=== PATIENT | male | born 1940 | race Caucasian/White ===

== ENCOUNTER 2017-07-18 09:45 | Outpatient (CLI) | payer MEDICARE ==
--- NOTE | 2017-07-18 13:31 | HP ---
DATE OF SERVICE: 07/18/2017 HISTORY OF PRESENT ILLNESS: Mr. Sylvain Arguello is a very pleasant 77-year-old gentleman who pres ents to the [facility] for evaluation of an ulceration of the right anterior lower leg. The patien t states that the ulceration began as a joy. The patient states that he "scratched my leg somehow" although he does not recall scratching his leg. The patient states that the ulceration has been pres ent for approximately two months. He states that he was treated with 2 courses of p.o. antibiotics b y Dr. Linus Christopher. He states that he was seen by Dr. Christopher on 2 occasions for his right anterior l ower leg ulceration. The patient states that he was last seen by Dr. Christopher on 07/04/2017 and at this time referred to the [facility] Center for further evaluation and treatment. PAST MEDICAL HISTORY: 1. Gastroesophageal reflux disease. 2. History of Marquez's esophagus. 3. Anemia. PAST SURGICAL HISTORY: Bilateral cataract surgery. MEDICATIONS: 1. Spironolactone. 2. Lasix. 3. Lactulose. 4. Iron. 4. Dutasteride. 5. Protonix. ALLERGIES: No known diagnosed allergies. SOCIAL HISTORY: Significant for tobacco use since age 20. The patient states that he stopped smokin g 10 years ago. He states that over this period of time, he smoked up to 1-1/2 packs of cigarettes p er day. The patient states that he stopped consuming alcohol 1.5 years ago. He admits to the heavy consumption of alcohol in the past. FAMILY HISTORY: Negative for diabetes mellitus or coronary artery disease. REVIEW OF SYSTEMS: The patient states that he has a liver condition for which he is followed by Dr. Nomi Weber. The patient states that he underwent endoscopy by Dr. Weber in 10/2013. PHYSICAL EXAMINATION: VITAL SIGNS: Temperature 97.9, pulse 71, respirations 18, blood pressure 167/79. GENERAL: A 77-year-old gentleman sitting on chair in examination room in no acute distress. HEENT: Normocephalic and atraumatic. NECK: No nuchal rigidity. CHEST: Clear to auscultation. CARDIOVASCULAR: Regular rate and rhythm. ABDOMEN: Soft. EXTREMITIES: An ulceration of the right anterior lower leg is present which measures approximately 1 .5 x 1.0 cm. The ulceration is completely covered by dry stable eschar. No serous or purulent drain age is associated with the wound. Erythema of the skin surrounding the wound is present which appear s to be secondary to stasis changes as opposed to an infectious process. No maceration of the skin o f the periwound is noted. A dorsalis pedis pulse is palpable on the right. Edema of the right foot and lower leg is present on exam today. NEUROLOGIC: Grossly nonfocal. ASSESSMENT AND PLAN: 1. Chronic venous hypertension with ulcer and inflammation. Discoloration of the skin of the right foot is present secondary to hemosiderin deposition. Silverlon, Webril p.r.n. and 3M Coban 2-layer c ompression system will be applied to the ulceration today. No antibiotics will be prescribed today b ased upon the appearance of the wound. I will see Mr. Arguello again in one week. At this time, cons ideration will be given to debridement of the wound in conjunction with treatment with 3M Coban 2 lay er compression system. Mr. Arguello understands and is in agreement with the preceding treatment plan . 2. Gastroesophageal reflux disease. 3. History of Marquez's esophagus. 4. Anemia.
[2017-07-18] MEDS ORDERED: Sodium Chloride 0.9% 15 ML NEB ONE (17:56)
== END 2017-07-18 09:46 | disposition home or self-care (01) ==
LOC: WCC 09:45
PROVIDERS: ATTEND Family Medicine
DX: I87.331 Chronic venous hypertension (idiopathic) with ulcer and inflammation of right lower extremity (principal); L97.819 Non-pressure chronic ulcer of other part of right lower leg with unspecified severity; K21.9 Gastro-esophageal reflux disease without esophagitis; D64.9 Anemia, unspecified; Z87.19 Personal history of other diseases of the digestive system
CPT/HCPCS: 29581; 97139; G0463; 99203; A4218

== ENCOUNTER 2017-07-25 11:21 | Outpatient (CLI) | payer MEDICARE ==
[~2017-07-25 11:21] MED LIST: Sodium Chloride 0.9% 15 ML NEB ONE
--- NOTE | 2017-07-25 14:20 | PRG ---
DATE OF SERVICE: 07/25/2017 HISTORY: Mr. Sylvain Arguello is a very pleasant 77-year-old gentleman who presents to the [facility] for evaluation of an ulceration of the right anterior lower leg. The patient previously stated that the ulceration began as a joy. The patient stated that he "scratch my leg somehow" although selena plasencia did not recall scratching his leg. The patient stated that the ulceration had been present for kylegih roximately 2 months when he initially presented to the [facility] Center. He stated that he was treated w ith 2 courses of p.o. antibiotics by Dr. Linus Christopher. He stated that he was seen by Dr. Christopher on 2 occasions for his right anterior lower leg ulceration. The patient stated that he was last seen by Dr. Christopher on 07/04/2017 and at this time referred to the [facility] Center for further evaluation and nelia tment. After being seen in the Wound Center, the ulceration was dressed with Silverlon, Webril, and 3M Coban 2 layer compression system. PHYSICAL EXAMINATION: VITAL SIGNS: Temperature 97.9, pulse 72, respirations 19, blood pressure 144/66. EXTREMITIES: An ulceration of the right anterior lower leg is present which measures approximately 1 .8 x 0.8 cm. The ulceration is covered by dry stable eschar. No serous or purulent drainage is asso ciated with the wound. Erythema of the skin surrounding the wound is present which appears to be sec ondary to stasis changes as opposed to an infectious process. No maceration of the skin of the periw ound is noted. A dorsalis pedis pulse is palpable on the right. No significant edema of the right f oot or lower leg is present on exam today. ASSESSMENT AND PLAN: 1. Chronic venous hypertension with ulcer and inflammation. Silverlon, Webril p.r.n., and the 3M Co ban 2-layer compression system will be applied to the ulceration today. I will see Mr. Arguello again in one week. 2. Gastroesophageal reflux disease. 3. History of Marquez's esophagus. 4. Anemia.
== END 2017-07-25 11:22 | disposition home or self-care (01) ==
LOC: WCC 11:21
PROVIDERS: ATTEND Family Medicine
DX: I87.311 Chronic venous hypertension (idiopathic) with ulcer of right lower extremity (principal); L97.219 Non-pressure chronic ulcer of right calf with unspecified severity; K21.9 Gastro-esophageal reflux disease without esophagitis; D64.9 Anemia, unspecified; Z87.19 Personal history of other diseases of the digestive system
CPT/HCPCS: 29581; A4218

== ENCOUNTER 2017-08-01 09:57 | Outpatient (CLI) | payer MEDICARE ==
[~2017-08-01 09:57] MED LIST changes: +Lidocaine 2% Jelly 5 ML TUBE ONE
--- NOTE | 2017-08-01 11:40 | PRG ---
DATE OF SERVICE: 08/01/2017 SUBJECTIVE: Mr. Sylvain Arguello is a very pleasant 77-year-old gentleman who presents to the [facility] for evaluation of an ulceration of the right anterior lower leg. The patient previously sta anshu that the ulceration began as a joy. The patient stated that he "scratched my leg somehow" altho ugh he did not recall scratching his leg. The patient stated that the ulceration had been present fo r approximately 2 months when he initially presented to the Wound Center. He stated that he was nelia anshu with 2 courses of p.o. antibiotics by Dr. Linus Christopher. The patient stated that he was seen by Dr. Christopher on 2 occasions for his right anterior lower leg ulceration. The patient stated that he was last seen by Dr. Christopher on 07/04/2017 and at this time referred to the Wound Center for further evalu ation and treatment. After being seen in the Wound Center, the ulceration was dressed with Silverlon , Webril, and 3M Coban 2 layer compression system. The patient has been receiving these dressing milad nges on a weekly basis. PHYSICAL EXAMINATION: VITAL SIGNS: Temperature 97.9, pulse 98, respirations 19, blood pressure 117/68. EXTREMITIES: An ulceration of the right anterior lower leg is present which measures approximately 2 .1 x 1.1 cm. Granulation tissue is present within the wound margins. Necrotic and nonviable tissue present within the wound margins was debrided with an excisional full-thickness debridement with the use of scissors. No purulent drainage is associated with the wound. Erythema of the skin surroundin g the wound is present which appears to be secondary to stasis changes as opposed to an infectious pr ocess. No maceration of the skin of the periwound is noted. A dorsalis pedis pulse is palpable on t he right. No significant edema of the right foot or lower leg is present on exam today. ASSESSMENT AND PLAN: 1. Chronic venous hypertension with ulcer and inflammation. The patient declines application of the 3M Coban 2 layer compression system today due to pain associated with the compression wrap. Therefo re, the patient is to receive dressing changes of Xeroform gauze, ABD, Kerlix, and an Zi bandage on a daily basis after cleansing and irrigation. Arrangements will be made for the home delivery of brian ssi supplies. I will see Mr. Arguello again in one week. 2. Gastroesophageal reflux disease. 3. History of Marquez's esophagus. 4. Anemia.
== END 2017-08-01 09:58 | disposition home or self-care (01) ==
LOC: WCC 09:57
PROVIDERS: ATTEND Family Medicine
DX: I87.331 Chronic venous hypertension (idiopathic) with ulcer and inflammation of right lower extremity (principal); L97.919 Non-pressure chronic ulcer of unspecified part of right lower leg with unspecified severity; K21.9 Gastro-esophageal reflux disease without esophagitis; D64.9 Anemia, unspecified; K22.70 Barrett's esophagus without dysplasia
CPT/HCPCS: A4218

== ENCOUNTER 2017-08-08 09:52 | Outpatient (CLI) | payer MEDICARE ==
[2017-08-08] MEDS ORDERED: Sodium Chloride 0.9% 15 ML NEB ONE (10:00)
[2017-08-08] MEDS ORDERED: Lidocaine 2% Jelly 5 ML TUBE ONE (10:00)
--- NOTE | 2017-08-08 11:07 | PRG ---
DATE OF SERVICE: 08/08/2017 HISTORY: Mr. Sylvain Arguello is a very pleasant 77-year-old gentleman who presents to the [facility] for evaluation of an ulceration of the right anterior lower leg. The patient previously stated that the ulceration began as a joy. The patient stated that he "scratch my leg somehow," although he did not recall scratching his leg. The patient stated that the ulceration had been present for ap proximately 2 months when he initially presented to the [facility] Center. The patient stated that he was seen by Dr. Christopher on 2 occasions for his right anterior lower leg ulceration. The patient stated th at he was last seen by Dr. Christopher on 07/04/2017 and at this time referred to the [facility]ound Center for furt her evaluation and treatment. After being seen in the Wound Center, the ulceration was dressed with Silverlon, Webril, and 3m Coban 2 layer compression system. Since the patient's last visit, Mr. Lindsey martinez has been receiving dressing changes of Xeroform gauze, ABD, Kerlix, and an Zi bandage on a daily basis after cleansing and irrigation. PHYSICAL EXAMINATION: VITAL SIGNS: Temperature 97.7, pulse 72, respirations 18, and blood pressure 128/65. EXTREMITIES: An ulceration of the right anterior lower leg is present which measures approximately 1 .1 x 2.0 cm. Granulation tissue is present within the wound margins. Necrotic and nonviable tissue present within the wound margins was debrided with an excisional full-thickness debridement with the use of a curette. No purulent drainage is associated with the wound. Erythema of the skin surroundi ng the wound is present, which again appears to be secondary to stasis changes as opposed to an infec tious process. No maceration of the skin of the periwound is noted. A dorsalis pedis pulse is not p alpable on the right. A dorsalis pedis pulse and posterior tibial pulse are both audible by Doppler on exam today. No significant edema of the right foot or lower leg is present on exam today. ASSESSMENT AND PLAN: 1. Chronic venous hypertension with ulcer and inflammation. Dressing changes of Xeroform gauze, ABD , Kerlix, and an Zi bandage will be continued on a daily basis after cleansing and irrigation. Annette awan were previously made for the home delivery of dressing supplies. I will see Mr. Saundra mistry in in one week. 2. Gastroesophageal reflux disease. 3. History of Marquez's esophagus. 4. Anemia.
== END 2017-08-08 09:53 | disposition home or self-care (01) ==
LOC: WCC 09:52
PROVIDERS: ATTEND Family Medicine
DX: I87.331 Chronic venous hypertension (idiopathic) with ulcer and inflammation of right lower extremity (principal); L97.219 Non-pressure chronic ulcer of right calf with unspecified severity; K21.9 Gastro-esophageal reflux disease without esophagitis; D64.9 Anemia, unspecified; Z87.19 Personal history of other diseases of the digestive system

== ENCOUNTER 2017-08-15 11:20 | Outpatient (CLI) | payer MEDICARE ==
--- NOTE | 2017-08-15 13:36 | PRG ---
DATE OF SERVICE: 08/15/2017 HISTORY: Mr. Sylvain Arguello is a very pleasant 77-year-old gentleman who presents to the [facility] for evaluation of an ulceration of the right anterior lower leg. The patient previously stated that the ulceration began as a joy. The patient stated that he "scratched my leg somehow" although he did not recall scratching his leg. The patient stated that the ulceration had been present for a pproximately 2 months when he initially presented to the [facility] Center. The patient stated that he wa s seen by Dr. Christopher on 2 occasions for his right anterior lower leg ulceration. The patient stated t hat he was last seen by Dr. Christopher on 07/04/2017 and at this time referred to the Wound Center for fur ther evaluation and treatment. After being seen in the Wound Center, the ulceration was dressed with Silverlon, Webril, and 3m Coban 2 layer compression system. Subsequently, the patient was placed on dressing changes of Xeroform gauze, ABD, Kerlix, and an Zi bandage on a daily basis after cleansing and irrigation. PHYSICAL EXAMINATION: VITAL SIGNS: Temperature 97.7, pulse 72, respirations 18, blood pressure 140/66. EXTREMITIES: An ulceration of the right anterior lower leg is present which measures approximately 1 .9 x 0.8 cm. Granulation tissue is present within the wound margins. Necrotic and nonviable tissue present within the wound margins was debrided with an excisional full-thickness debridement with the use of a curette. No purulent drainage is associated with the wound. Less erythema of the skin surr ounding the wound is present than at the time of the patient's last visit. The erythema of the skin surrounding the wound appears to be secondary to stasis changes as opposed to an infectious process. No maceration of the skin of the periwound is noted. A dorsalis pedis pulse is palpable on the righ t. No significant edema of the right foot or lower leg is present on exam today. ASSESSMENT AND PLAN: 1. Chronic venous hypertension with ulcer and inflammation. Dressing changes of Xeroform gauze, ABD , Kerlix, and an Zi bandage will be continued on a daily basis after cleansing and irrigation. I wi ll see Mr. Arguello again in two weeks. 2. Gastroesophageal reflux disease. 3. History of Marquez's esophagus. 4. Anemia.
== END 2017-08-15 11:21 | disposition home or self-care (01) ==
LOC: WCC 11:20
PROVIDERS: ATTEND Family Medicine
DX: I87.331 Chronic venous hypertension (idiopathic) with ulcer and inflammation of right lower extremity (principal); L97.919 Non-pressure chronic ulcer of unspecified part of right lower leg with unspecified severity; K21.9 Gastro-esophageal reflux disease without esophagitis; D64.9 Anemia, unspecified
CPT/HCPCS: 11042; A4218

== ENCOUNTER 2017-08-28 07:22 | Outpatient (CLI) | payer MEDICARE | END 2017-08-28 07:23 | disposition home or self-care (01) | LOC: BICULT 07:22 | PROVIDERS: ATTEND Internal Medicine Gastroenterology | DX: K74.60 Unspecified cirrhosis of liver (principal); K22.70 Barrett's esophagus without dysplasia; K80.20 Calculus of gallbladder without cholecystitis without obstruction; R16.1 Splenomegaly, not elsewhere classified; Z86.010 Personal history of colon polyps | CPT/HCPCS: 76705 ==

== ENCOUNTER 2017-08-29 10:38 | Outpatient (CLI) | payer MEDICARE ==
--- NOTE | 2017-08-29 11:40 | PRG ---
DATE OF SERVICE: 08/29/2017 HISTORY: Mr. Sylvain Arguello is a very pleasant 77-year-old gentleman who presents to the [facility] for evaluation of an ulceration of the right anterior lower leg. The patient previously stated that the ulceration began as a joy. The patient stated that he "scratched my leg somehow," althoug h he did not recall scratching his leg. The patient stated that the ulceration had been present for approximately 2 months when he initially presented to the [facility] Center. The patient stated that he w as seen by Dr. Christopher on 2 occasions for his right anterior lower leg ulceration. The patient stated that he was last seen by Dr. Christopher on 07/04/2017 and at this time, referred to the Wound Center for f urther evaluation and treatment. After being seen in the Wound Center, the ulceration was dressed wi th Silverlon, Webril and 3M Coban 2-layer compression system. Subsequently, the patient was placed o n dressing changes of Xeroform gauze, ABD, Kerlix and an Zi bandage on a daily basis after cleansing and irrigation. PHYSICAL EXAMINATION: VITAL SIGNS: Temperature 97.7, pulse 91, respirations 16, blood pressure 118/64. EXTREMITIES: An ulceration of the right anterior lower leg is present, which measures approximately 0.4 x 0.9 cm. Granulation tissue is present within the wound margins. Necrotic and nonviable tissue present within the wound margins was debrided with an excisional full-thickness debridement. No pur ulent drainage is associated with the wound. No cellulitis of the right lower leg is present. No ma ceration of the skin of the periwound is noted. A dorsalis pedis pulse is palpable on the right. No significant edema of the right foot or lower leg is present on exam today. ASSESSMENT AND PLAN: 1. Chronic venous hypertension with ulcer and inflammation. Xeroform gauze, ABD, Kerlix and an Zi bandage will be applied to the wound today. The patient is to receive dressing changes of Xeroform g auze 3 times per week after cleansing and irrigation with the assistance of his . I will see Mr. Arguello again in two weeks if the wound is still present at this time. 2. Gastroesophageal reflux disease. 3. History of Marquez's esophagus. 4. Anemia.
== END 2017-08-29 10:39 | disposition home or self-care (01) ==
LOC: WCC 10:38
PROVIDERS: ATTEND Family Medicine
DX: I87.331 Chronic venous hypertension (idiopathic) with ulcer and inflammation of right lower extremity (principal); L97.819 Non-pressure chronic ulcer of other part of right lower leg with unspecified severity; D64.9 Anemia, unspecified; K21.9 Gastro-esophageal reflux disease without esophagitis; Z87.19 Personal history of other diseases of the digestive system
CPT/HCPCS: 11042

== ENCOUNTER 2017-09-19 08:02 | Outpatient (CLI) | payer MEDICARE ==
--- NOTE | 2017-09-19 09:14 | PRG ---
DATE OF SERVICE: 09/19/2017 HISTORY: Mr. Sylvain Arguello is a very pleasant 77-year-old gentleman who presents to the [facility] for evaluation of an ulceration of the right anterior lower leg. The patient previously stated that the ulceration began as a joy. The patient stated that he "scratched my leg somehow" although he did not recall scratching his leg. The patient stated that the ulceration had been present for a pproximately 2 months when he initially presented to the [facility] Center. The patient stated that he wa s seen by Dr. Christopher on two occasions for his right anterior lower leg ulceration. The patient stated that he was seen by Dr. Christopher on 07/04/2017 and at this time referred to the Wound Center for furthe r evaluation and treatment. After being seen in the Wound Center, the ulceration was dressed with Si lverlon, Webril, and 3M Coban 2 layer compression system. Subsequently, the patient was placed on dr melanie changes of Xeroform gauze, ABD, Kerlix, and an Zi bandage on a daily basis after cleansing an d irrigation. PHYSICAL EXAMINATION: VITAL SIGNS: Temperature 98.9, pulse 97, respirations 18, blood pressure 122/80. EXTREMITIES: The ulceration of the right anterior lower leg has completely healed. No significant e isaias of the right foot or lower leg is present on exam today. ASSESSMENT AND PLAN: 1. Chronic venous hypertension with ulcer and inflammation. As stated above, the ulceration has hea led completely. Mr. Arguello will be discharged from clinic today with followup on a p.r.n. basis. 2. Gastroesophageal reflux disease. 3. History of Marquez's esophagus. 4. Anemia.
[2017-09-20] MEDS ORDERED: Sodium Chloride 0.9% 15 ML NEB ONE (15:19)
== END 2017-09-19 08:03 | disposition home or self-care (01) ==
LOC: WCC 08:02
PROVIDERS: ATTEND Family Medicine
DX: I87.301 Chronic venous hypertension (idiopathic) without complications of right lower extremity (principal); K21.9 Gastro-esophageal reflux disease without esophagitis; D64.9 Anemia, unspecified

== ENCOUNTER 2018-06-25 08:54 | Outpatient (CLI) | payer MEDICARE ==
--- NOTE | 2018-06-25 12:59 | ULT ---
HEPATIC ULTRASOUND DOPPLER DUPLEX: 06/25/2018 HISTORY: A 78-year-old male with unspecified cirrhosis of the liver, K74.60. TECHNIQUE: Pinon-scale, color-flow, and spectral analysis of the liver, the spleen, and the major blood vessels a ssociated with the liver. FINDINGS: Hepatic size and echogenicity are normal. There is a subtle finding of an approximately 2 x 2 x 2.5 cm, irregularly-shaped focus of slightly he terogeneous echogenicity in the right lobe of the liver, which is somewhat suspicious for neoplasm. Hepatic margins are slightly lobular, suggestive of cirrhosis. The previously demonstrated gallstone on the study of 08/28/2017 is not visualized on the current shana dy. Normal wall thickness. No sludge, pericholecystic fluid, or sonographic Andrews sign. Common duct caliber is 5 mm. The spleen is at the upper limits of normal in size, at 14.5 x 6.5 x 6.5 cm, with a slightly lobular hilum. Pulsatile arterial waveforms at hepatic artery and splenic artery. Hepatopetal flow with appropriate portal venous waveforms in the main, left, and right portal veins, and splenic vein. Hepatofugal louise w with appropriate waveforms in the left, middle, and right hepatic veins. IMPRESSION: 1. Suspicious for hepatocellular carcinoma in the right lobe of the liver. Recommend further evalua tion with a multiphase CT of the abdomen with and without contrast (liver mass protocol). 2. Evidence for hepatic cirrhosis. 3. Borderline splenomegaly. 4. The cholelithiasis demonstrated on previous liver ultrasounds is not identified on the current st udy. 5. Appropriate directional flow of major vessels associated with the liver. CODE T POS: BRIAN
== END 2018-06-25 08:55 | disposition home or self-care (01) ==
LOC: BICULT 08:54
PROVIDERS: ATTEND Internal Medicine Gastroenterology
DX: K74.60 Unspecified cirrhosis of liver (principal); R16.1 Splenomegaly, not elsewhere classified
CPT/HCPCS: 76705

== ENCOUNTER 2018-07-24 08:52 | Outpatient (CLI) | payer MEDICARE ==
--- NOTE | 2018-07-24 11:57 | MRI ---
MRI Abdomen W WO Con History: [R 16.0 liver mass] Comparison: Ultrasound June 25, 2018, August 2017 Findings: The hepatic contour is nodular. Within the right lobe of the liver there are 2 separate sma ll arterial hyperenhancing masses in hepatic segment 4B. The larger mass measures 2.2 cm in size axia l image 1023 on the arterial phase and the smaller measures 7 mm axial images 1023 arterial phase. Tereso th of these foci demonstrate washout. There is an enhancing capsule. The smaller 7 mm mass also demon strates arterial phase hyper enhancement with washout and an enhancing capsule. The spleen is enlarged measuring 15 cm in length. Small splenule is noted. Pancreas is unremarkable. Adrenal glands are unremarkable. The aortic contour is nonaneurysmal. The portal vein is patent. Circumferential narrowing of the osti a the superior mesenteric artery due to soft plaque. No hydronephrosis. No retroperitoneal adenopathy. Bilateral gynecomastia. Punctate T2 hyperintense foci of the right kidney which does not enhance suggesting small cysts. Background marrow signal is normal. Cholelithiasis without cholecystitis. Mild atelectasis left lung base. Small esophageal varices. Impression: 1. LI-RADS 5: Definitely HCC. Mass within hepatic segment Kacey measures 2.2 cm with arterial phase hyp erenhancement, washout, and an enhancing capsule. There is a smaller 7 mm mass with similar imaging a ppearance which due to its small size would be categorized as a LI-RADS 4: Probably HCC. 2. Severe background cirrhosis of the liver. There is also splenomegaly suggesting portal venous hype rtension. The portal vein is patent. 3. Approximately 50% narrowing at the origin of superior mesenteric artery due to soft and calcific p laque. 4. Small right renal cysts. 5. Cholelithiasis.
== END 2018-07-24 08:53 | disposition home or self-care (01) ==
LOC: BICMRI 08:52
PROVIDERS: ATTEND Internal Medicine Gastroenterology
DX: R16.2 Hepatomegaly with splenomegaly, not elsewhere classified (principal); K74.60 Unspecified cirrhosis of liver; N28.1 Cyst of kidney, acquired; K80.20 Calculus of gallbladder without cholecystitis without obstruction; I77.89 Other specified disorders of arteries and arterioles
CPT/HCPCS: 74183; 82565

== ENCOUNTER 2019-08-29 09:00 | Outpatient (CLI) | payer MEDICARE ==
[2019-08-29] MEDS ORDERED: Magnevist 469MG/ML 20 ML VIAL ONE (10:13)
--- NOTE | 2019-08-29 13:25 | CT ---
CT CHEST WITHOUT CONTRAST: INDICATION: Liver cell carcinoma is given as reason for exam. The technologist's note states prior resection of liver mass. COMPARISON: Comparison is made to a chest CT from 10/23/2015. FINDINGS: The lungs show mild hyperexpansion and chronic lung parenchymal change. Mild stranding in the lung b ases posteriorly. There is pleural thickening posteriorly in the left lung base with a calcified ple ural-based nodule in the left lung base which is stable. There is mild pleural-based stranding in th e lingula peripherally. There is no evidence of effusion. There is no evidence of inflammatory infi ltrate. No pulmonary mass lesion identified. The mediastinum is unremarkable. No adenopathy identified. Images through the upper abdomen revealed gallstones in the neck of the gallbladder. The liver duane n is irregular consistent with changes of cirrhosis. No hepatic lesion identified on this unenhanced study. Mild splenomegaly. Osseous structures appear unremarkable. IMPRESSION: 1. There are mild chronic lung parenchymal changes as described. No acute lung process identified. 2. Cholelithiasis is noted on images through the upper abdomen. POS: AGW
--- NOTE | 2019-08-29 18:06 | MRI ---
MR OF THE ABDOMEN WITH AND WITHOUT CONTRAST: 08/29/19 INDICATION: History of hepatocellular carcinoma status post therapy; follow-up liver lesion. CONTRAST: 13 mL Multihance. TECHNIQUE: Multiplanar and multisequence MR images were obtained of the liver with and without contrast utilizin g a hepatic mass protocol. COMPARISON: Comparison is made with the prior dated 07/24/18 from [facility]. FINDINGS: The arterial enhancing mass within segment VIII of the right hepatic lobe labeled an LR5 lesion on th e prior examination demonstrates interval increase in size on image 1022 of the arterial phase images . The lesion previously measured 2.3 x 1.9 cm and now measures 3.2 x 2.4 cm. The lesion demonstrates persistent central washout and peripheral capsular enhancement. There is a new hyperenhancing lesion within segment of the right hepatic lobe on image 1032 of the arterial series measuring 1.7 cm. This lesion in retrospect was not evident on the prior examination . Additional small focal area of hyperenhancement is seen adjacent to the segment VIII lesion on image 1025 of series 8 measuring 7 mm. This previously measured 5 mm on the prior examination. An additiona l 1 cm hyperenhancing lesion is seen within segment VIII of the right hepatic lobe on image 1023 of s eries 8 where this previously measured 8 mm on the prior examination. There is a 1.8 cm hyperenhancing lesion within the caudate lobe on image 1025 of the axial series kyra t previously measured 11 mm. There is an additional hyperenhancing lesion within the caudate lobe on image 1030 of the axial series that previously measured 11 mm. Again seen is the cirrhotic morphology of the liver. There is recanalization of the umbilical vein. There is splenomegaly measuring up to 17 cm. Small cysts are seen within both kidneys. Adrenal glands are normal appearing. Portal vein appears patent. No intraluminal thrombus is grossly evident within the hepatic vein or portal vein. No pathologically enlarged lymph nodes are seen within the upper ab domen. No free fluid is noted. Again seen is moderate narrowing of the proximal SMA due to atheroscle rotic plaque. There are layered gallstones within the gallbladder. IMPRESSION: 1. LI-RADS 5. Worsening multifocal hepatocellular carcinoma. The lesions previously identified within segment VIII of right hepatic lobe have increased in number and size. The lesions seen within the caudate lobe have increased in size. There is a new lesion within segment of the right hepati c lobe. 2. Findings of cirrhosis and portal hypertension. 3. Stable bilateral renal cysts. 4. Stable cholelithiasis. POS: BH
== END 2019-08-29 09:01 | disposition home or self-care (01) ==
LOC: BICCT 09:00
PROVIDERS: ATTEND Internal Medicine Gastroenterology
DX: C22.0 Liver cell carcinoma (principal); K80.20 Calculus of gallbladder without cholecystitis without obstruction; R91.8 Other nonspecific abnormal finding of lung field; J92.9 Pleural plaque without asbestos; N28.1 Cyst of kidney, acquired; K76.6 Portal hypertension; K74.60 Unspecified cirrhosis of liver; K76.9 Liver disease, unspecified
CPT/HCPCS: 71250; 74183; 82565; A9579

== ENCOUNTER 2020-04-05 15:44 | Inpatient (IN) | payer MEDICARE ==
[2020-04-05 16:32] LABS: #Eosinphils 0.1 thou/uL (0.0-0.7); #Lymphocytes 0.7 thou/uL (1.20-3.40); #Monocytes 0.9 thou/uL (0.11-0.59); #Neutrophils 6.2 thou/uL (1.40-6.50); %Basophils 0.3 % (0.0-1.0); %Eosinophils 1.1 % (0.0-10.0); %Lymphocytes 8.3 % (21.0-51.0); %Monocytes 11.4 % (0.0-10.0); %Neutrophils 78.9 % (42.0-75.0); Hemoglobin 10.5 g/dL (14.0-18.0); Mean Corpuscular HGB CONC 32.4 g/dL (32.0-36.0); Mean Corpuscular Hemoglobin 31.7 pg (27.0-31.0); Mean Corpuscular Volume 97.8 fL (78.0-98.0); Mean Platelet Volume 7.6 fL (7.4-10.4); Platelet Count 148 thou/uL (130-400); RBC Distribution Width 15.9 % (11.5-14.5); White Blood Cell (WBC) Count 7.9 thou/uL (4.8-10.8)
[2020-04-05 16:58] LABS: ALT (SGPT) 46 U/L (8-55); AST (SGOT) 113 U/L (5-34); Albumin 2.4 g/dL (3.4-4.8); Alkaline Phosphatase 135 U/L (40-110); Anion Gap 17 mmol/L (10-20); BUN (Urea Nitrogen) 58 mg/dL (8.4-25.7); Bilirubin, Total 5.1 mg/dL (0.2-1.2); Calc. Creatinine Clearance 0 mL/min (70-130); Calcium 9.3 mg/dL (7.8-10.44); Carbon Dioxide 18 mmol/L (23-31); Chloride 99 mmol/L (98-107); Globulin 3.9 g/dL (2.4-3.5); Glucose 122 mg/dL (83-110); Potassium 4.6 mmol/L (3.5-5.1); Protein, Total 6.3 g/dL (5.8-8.1); Sodium 129 mmol/L (136-145)
--- NOTE | 2020-04-05 18:03 | RAD ---
EXAM: Single view of the chest HISTORY: Liver cancer and cirrhosis. CHF. COMPARISON: 12/14/2015 FINDINGS: Single view of the chest shows a normal sized cardiomediastinal silhouette. Atheroscleroti c calcifications are seen in the aorta. There is a veil opacity in the inferior right thorax which likely represents a layering pleural effusion and adjacent atelectasis versus infiltrate. There may a lso be a trace left pleural effusion. Healing left rib fractures are seen. IMPRESSION: Bilateral pleural effusions, right greater than left.
[2020-04-05] MEDS ORDERED: Morphine 4 MG/ML VIAL ONE (18:37)
[2020-04-05] MEDS ORDERED: Ondansetron PF 4 MG/2 ML Vial ONE ×2 (18:37→18:48)
[2020-04-05] MEDS ORDERED: cefTRIAXone\\ROCEPHIN 2 GM VIAL ONE (19:09)
[2020-04-05] MEDS ORDERED: Albumin 25% 25 GM/100 ML BOT IVPB SCH (19:30)
[2020-04-05 19:52] LABS: Bilirubin Negative (Negative); Blood, Urine Negative (Negative); Clarity Clear (Clear); Glucose, Urine (Dipstick) Normal (Negative); Ketone, Urine Negative (Negative); Leukocyte Negative Leu/uL (Negative); Nitrite Negative (Negative); Protein, Urine (Dipstick) Negative (Neg-Trace); Specific Gravity, Urine 1.016 (1.002-1.036)
[2020-04-05] MEDS ORDERED: Ondansetron ODT 4 MG TAB PO PRN (21:50)
[2020-04-05] MEDS ORDERED: Ondansetron PF 4 MG/2 ML Vial IVP PRN (21:50)
--- NOTE | 2020-04-05 22:12 | PDOC.HHP ---
Hospitalist HPI - History of Present Illness Abdominal discomfort, nausea History of Present Illness: This is 80-year-old male patient with a history of decompensated cirrhosis, hypertension, who presents with worsening abdominal discomfort and nausea. This has been going on for over a week however his condition he felt worsened today with, abdominal tension and swelling of his feet so he came to the ED. He was brought in by his who helped narrate the history. He follows if Dr. Weber. He denies any associated headache fevers or chills. He denies any cough chest pain or shortness of breath. He denies any vomiting although he has nausea. Abdomen is tense with discomfort however not exquisitely painful. He denies any dysuria frequency or diarrhea. At presentation his blood pressure was 98/54, pulse 98, temperature 98.2 and saturating 95% on room air. He had a mild anemia of 10.5 From a baseline of 12.1, 3 months ago months ago. Sodium was 129, creatinine was 3.74 from a baseline of 0.892 months ago. Alkaline phosphatase was elevated at 135, BNP was 170. Chest x-ray noted bilateral pleural effusion right greater than left. 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 Weber was consulted recommending starting ceftriaxone. He was also started on albumin given his acute kidney injury. He also received a liter bolus of normal saline and continue an infusion at 125 mils per hour. Hospitalist team was consulted for admission for Hospitalist ROS - Review of Systems Constitutional: reports: weakness. denies: fever, chills, sweats Cardiovascular: denies: chest pain, palpitations, orthopnea, paroxysmal noc. dyspnea Gastrointestinal: reports: nausea, abdominal pain. denies: vomiting, diarrhea, constipation Neurological: denies: weakness, numbness, incoordination All other systems reviewed; all pertinent +/- noted in HPI/Subj - Medication Medications: Medications: Can refer to outpatient medication list. Allergies: No known drug allergies. Hospitalist History - Past Medical History Other Medical History: GERD, cirrhosis, liver cancer - Past Surgical History Other Surgical History: Liver biopsy - Family History Family History: reports: cerebrovascular accident - Social History Smoking Status: Former smoker Alcohol: reports: None Drugs: reports: none Living Situation: With Family Activity level: uses cane/walker - Exam General Appearance: awake alert, ill appearing General - other findings: Looks cachectic Eye: PERRL, anicteric sclera Neck: supple, symmetric, no JVD Heart: RRR, no murmur, no gallops, no rubs Respiratory - other findings: Reduced air entry at bases, no rhonchi rales Gastrointestinal: normal bowel sounds, no palpable masses, tender to palpation (Mild), distended Extremities: no cyanosis, no clubbing, 1+ LE edema Extremities - other findings: Crusted wound on anterior right yao. Neurological: cranial nerve grossly intact, no focal deficits Psychiatric: normal affect, A&O x 3 Hospitalist Results - Labs Result Diagrams: 04/06/20 05:38 04/06/20 05:37 Lab results: WBC 7.9 thou/uL (4.8-10.8) 04/05/20 16:20 Hgb 10.5 g/dL (14.0-18.0) L 04/05/20 16:20 Hct 32.3 % (42.0-52.0) L 04/05/20 16:20 MCV 97.8 fL (78.0-98.0) 04/05/20 16:20 Plt Count 148 thou/uL (130-400) 04/05/20 16:20 Neutrophils % 78.9 % (42.0-75.0) H 04/05/20 16:20 Sodium 129 mmol/L (136-145) L 04/05/20 16:20 Potassium 4.6 mmol/L (3.5-5.1) 04/05/20 16:20 Chloride 99 mmol/L (98-107) 04/05/20 16:20 Carbon Dioxide 18 mmol/L (23-31) L 04/05/20 16:20 BUN 58 mg/dL (8.4-25.7) H 04/05/20 16:20 Creatinine 3.74 mg/dL (0.7-1.3) H 04/05/20 16:20 Glucose 122 mg/dL (83-110) H 04/05/20 16:20 Calcium 9.3 mg/dL (7.8-10.44) 04/05/20 16:20 Total Bilirubin 5.1 mg/dL (0.2-1.2) H 04/05/20 16:20 AST 113 U/L (5-34) H 04/05/20 16:20 ALT 46 U/L (8-55) 04/05/20 16:20 Alkaline Phosphatase 135 U/L (40-110) H 04/05/20 16:20 B-Natriuretic Peptide 170.2 pg/mL (0-100) H 04/05/20 16:20 Serum Total Protein 6.3 g/dL (5.8-8.1) 04/05/20 16:20 Albumin 2.4 g/dL (3.4-4.8) L 04/05/20 16:20 Urine Ketones Negative mg/dL (Negative) 04/05/20 19:30 Urine Blood Negative (Negative) 04/05/20 19:30 Urine Nitrite Negative (Negative) 04/05/20 19:30 Ur Leukocyte Esterase Negative Samaria/uL (Negative) 04/05/20 19:30 Hospitalist H&P A/P - Plan Plan: This is 80-year-old male patient with a history of decompensated liver cirrhosis presenting with posterior and abdominal distention with worsening edema. Reviewed admitted and antibiotic started for possible SBP. Presumed SBP Started on ceftriaxonewe will continue Paracentesis in a.m.therapeutic and diagnostic GI consulted. Decompensated liver disease Has ascites previously tapped. Has worsening ascites Continue antibiotics Appreciate GI input. ALDO Significant increase in creatinine from her baseline of less than 1 to above 3. Possible hepatorenal syndrome Started on albumin Nephrology consultedappreciate input. Hypotension Presented systolic blood pressure 98/54 currently improved with systolic above 100 This likely secondary to decompensated liver cirrhosisless likely sepsis however blood cultures have been drawn. Received IV fluidswe will discontinue We will continue volume expansion with albumin Monitor blood pressures Discontinue antihypertensives. Normocytic anemia Mild We will do iron studies Monitor CBC VT prophylaxisHeparin CODE STATUSDNR
[2020-04-05 22:36] LABS: Creatinine, Urine 188.12 mg/dL (63-166); Protein, Urine Random Quant 11 mg/dL (1-14); Sodium, Urine Less than 20 mmol/L (Not Available); Urea Nitrogen, Random Urine 435 mg/dl
[2020-04-05] MEDS: Albumin 25% 25 GM/100 ML BOT IVPB SCH (23:23)
[2020-04-06 05:17] LABS: SARS-CoV-2 MS2 Positive; SARS-CoV-2 N Gene Negative; SARS-CoV-2 S Gene Negative; SARS-CoV-2 by NAA Not Detected (NotDetected); SARS-CoV-2 orf1ab Negative
[2020-04-06] MEDS: Albumin 25% 25 GM/100 ML BOT IVPB SCH ×3 (05:19→17:54)
[2020-04-06 06:02] LABS: Lactic Acid 1.5 mmol/L (0.5-2.2)
[2020-04-06 06:07] LABS: Anion Gap 16 mmol/L (10-20); BUN (Urea Nitrogen) 52 mg/dL (8.4-25.7); Calc. Creatinine Clearance 17 mL/min (70-130); Calcium 9.3 mg/dL (7.8-10.44); Carbon Dioxide 19 mmol/L (23-31); Chloride 102 mmol/L (98-107); Glucose 84 mg/dL (83-110); Potassium 4.8 mmol/L (3.5-5.1); Sodium 132 mmol/L (136-145)
[2020-04-06 06:09] LABS: Iron 123 ug/dL (65-175); Iron Binding Capacity, Total 93 mcg/dL (261-462)
[2020-04-06] MEDS ORDERED: FLU VACC QS2020-21(65YR UP)/PF 240 MCG/0.7 ML SYRINGE IM ONE (09:00)
[2020-04-06] MEDS: Heparin 5,000 UNITS/ML VIAL SC SCH ×2 (09:28→15:41)
--- NOTE | 2020-04-06 10:09 | PDOC.NEPPN ---
- Subjective Encounter Date: 04/06/20 Subjective: Seen in follow up for ALDO in the context of decompensated liver cirrhosis. Nausea has subsided. Remained afebrile. - Objective Vital Signs & Weight: Vital Signs (12 hours) Temp Pulse Resp BP BP Pulse Ox 04/06/20 08:01 97.5 F L 76 20 91/54 L 95 04/06/20 07:53 95 04/06/20 05:11 97.5 F L 82 18 106/59 L 92 L 04/05/20 22:55 94 L 04/05/20 22:40 97.7 F 77 18 105/64 94 L Weight Weight 132 lb 3.2 oz Result Diagrams: 04/05/20 16:20 04/06/20 05:37 Nephrology ROS - Medication Medications: Active Medications Generic Name Dose Route Start Last Admin Trade Name Freq PRN Reason Stop Dose Admin Albumin Human 25 gm 04/05/20 23:59 04/06/20 05:19 Albumin 25% 25 Gm/100 Ml Bot IVPB 04/06/20 23:59 25 gm Q6HR LINSEY Administration Heparin Sodium (Porcine) 5,000 units 04/06/20 09:00 04/06/20 09:28 Heparin 5,000 Units/Ml Vial SC Not Given TID LINSEY - Exam General Appearance: awake alert Eye: scleral icterus ENT: normocephalic atraumatic, dry oral mucosa Neck: supple, no JVD Respiratory: CTAB, no ronchi, normal chest expansion Cardiovascular: RRR Heart - other findings: m Gastrointestinal: normal bowel sounds Gastrointestinal - other findings: mildly enlarged. Extremities: 2+ LE edema Neurological: CN's grossly intact, no focal deficits PSYCH: A&O x 3 Nephrology Results - Labs Result Diagrams: 04/05/20 16:20 04/06/20 05:37 Lab results: WBC 7.9 thou/uL (4.8-10.8) 04/05/20 16:20 Hgb 10.5 g/dL (14.0-18.0) L 04/05/20 16:20 Hct 32.3 % (42.0-52.0) L 04/05/20 16:20 MCV 97.8 fL (78.0-98.0) 04/05/20 16:20 Plt Count 148 thou/uL (130-400) 04/05/20 16:20 Neutrophils % 78.9 % (42.0-75.0) H 04/05/20 16:20 Sodium 132 mmol/L (136-145) L 04/06/20 05:37 Potassium 4.8 mmol/L (3.5-5.1) 04/06/20 05:37 Chloride 102 mmol/L (98-107) 04/06/20 05:37 Carbon Dioxide 19 mmol/L (23-31) L 04/06/20 05:37 BUN 52 mg/dL (8.4-25.7) H 04/06/20 05:37 Creatinine 3.01 mg/dL (0.7-1.3) H 04/06/20 05:37 Glucose 84 mg/dL (83-110) 04/06/20 05:37 Lactic Acid 1.5 mmol/L (0.5-2.2) 04/06/20 05:37 Calcium 9.3 mg/dL (7.8-10.44) 04/06/20 05:37 Total Bilirubin 5.1 mg/dL (0.2-1.2) H 04/05/20 16:20 AST 113 U/L (5-34) H 04/05/20 16:20 ALT 46 U/L (8-55) 04/05/20 16:20 Alkaline Phosphatase 135 U/L (40-110) H 04/05/20 16:20 B-Natriuretic Peptide 170.2 pg/mL (0-100) H 04/05/20 16:20 Serum Total Protein 6.3 g/dL (5.8-8.1) 04/05/20 16:20 Albumin 2.4 g/dL (3.4-4.8) L 04/05/20 16:20 Urine Ketones Negative mg/dL (Negative) 04/05/20 19:30 Urine Blood Negative (Negative) 04/05/20 19:30 Urine Nitrite Negative (Negative) 04/05/20 19:30 Ur Leukocyte Esterase Negative Samaria/uL (Negative) 04/05/20 19:30 Sodium 132 mmol/L (136-145) L 04/06/20 05:37 Potassium 4.8 mmol/L (3.5-5.1) 04/06/20 05:37 Chloride 102 mmol/L (98-107) 04/06/20 05:37 Carbon Dioxide 19 mmol/L (23-31) L 04/06/20 05:37 Anion Gap 16 mmol/L (10-20) 04/06/20 05:37 BUN 52 mg/dL (8.4-25.7) H 04/06/20 05:37 Creatinine 3.01 mg/dL (0.7-1.3) H 04/06/20 05:37 Glucose 84 mg/dL (83-110) 04/06/20 05:37 Calcium 9.3 mg/dL (7.8-10.44) 04/06/20 05:37 Albumin 2.4 g/dL (3.4-4.8) L 04/05/20 16:20 Nephrology AP PN - Plan ALDO: Most likely due to volume depletion with possible contribution from hepatorenal syndrome. Creat is trending down with albumin infusion. Possible hepatorenal syndrom CKD: Baseline creat is unknown. Hypoalbuminemia Hyponatremia. Anasarca. Decompensated liver cirrhosis. Plan Continue albumin for another 24 hours. Monitor renal function and electrolytes Octreotide and midodrine therapy contemplated. Avoid nephrotoxic agents and diuretics.
[2020-04-06 10:29] LABS: Band 1 % (5-11); Eosinophils 1 % (0-10); Hemoglobin 8.5 g/dL (14.0-18.0); Lymphocytes 16 % (21-51); MDiff Complete? YES; Mean Corpuscular HGB CONC 32.6 g/dL (32.0-36.0); Mean Corpuscular Volume 98.3 fL (78.0-98.0); Mean Platelet Volume 8.3 fL (7.4-10.4); Monocytes 11 % (0-10); Myelocyte 1 % (0-0); Neutrophil 68 % (42-75); Platelet Count 76 thou/uL (130-400); Platelet Morphology Comment Appears Decreased; Polychromasia SLIGHT = 2-3 cells (100X) (0-2/hpf); Red Blood Cell (RBC) Count 2.67 mill/uL (4.70-6.10); Schistocytes SLIGHT = 2-5 cells (100X) (0-1/hpf)
--- NOTE | 2020-04-06 11:05 | CON ---
DATE OF CONSULTATION: 04/05/2020 SERVICE: Nephrology. REASON FOR CONSULTATION: Acute elevation in creatinine. REQUESTING PHYSICIAN: Dr. Saroj Darby. HISTORY OF PRESENT ILLNESS: A 80-year-old male with known history of liver cirrhosis, hypertension, amongst others, who presented with worsening back pain after a fall. The patient also reported worsening abdominal discomfort and nausea. He has known history of chronic bilateral leg edema, but denied emesis, hematemesis, hematochezia, change in bowel habit, fever, or chills. The patient on presentation was found to have elevated creatinine of 3.74, which is markedly elevated from baseline of 0.89 hence Nephrology consult. The patient denied diarrhea, but admitted to soft stool, which he attributed to use of lactulose for his liver cirrhosis. There is no history of dysuria, hematuria, frequency, chest pain, or shortness of breath. PAST MEDICAL HISTORY: 1. Gastroesophageal reflux disease. 2. Marquez esophagus. 3. Liver cirrhosis. 4. Liver cancer. PAST SURGICAL HISTORY: 1. Atherectomy. 2. Liver biopsy. FAMILY HISTORY: Significant for CVA. SOCIAL HISTORY: The patient is a former smoker and drinker. Denied use of alcohol or cigarette in the last 5 years. Lives with family. Ambulates with a cane. ALLERGIES: NO KNOWN DRUG ALLERGIES REPORTED. MEDICATIONS: Prior to hospital medications are as follows; 1. Spironolactone 50 mg daily. 2. Bactrim DS one tablet b.i.d. 3. Furosemide 20 mg daily. 4. Protonix 40 mg b.i.d. 5. Ferrous sulfate 325 mg daily. 6. Zinc 50 mg daily. 7. Dutasteride 0.5 mg p.o. daily. 8. Tramadol 50 mg b.i.d. as needed. 9. Zofran 4 mg p.o. as needed. REVIEW OF SYSTEMS: A 12-point review of system performed and was negative other than pertinent positives and negatives included in the history of present illness. PHYSICAL EXAMINATION: VITAL SIGNS: Temperature 99.8, pulse 75, respiratory rate 14, SpO2 of 96 on room air, blood pressure is 100/56. GENERAL: Chronically ill-looking, elderly male, in no obvious distress. Afebrile, acyanotic. HEENT: Normocephalic and atraumatic. Oral mucosa is dry. NECK: Supple with no obvious JVD. CARDIOVASCULAR: Regular rhythm and rate. Normal. heart sounds 1 and 2. RESPIRATORY: Fair air entry bilaterally with some transmitted breath sounds, but no obvious crackle or rhonchi or use of accessory muscles. GI: Abdomen is mildly enlarged with mild diffuse tenderness. Bowel sound is normoactive. MUSCULOSKELETAL: Mild kyphosis noted. Sacral area edema appreciated. Mild tenderness of the back also noted. EXTREMITIES: [id number] bilateral leg edema with a small wound on the distal anterior right leg with minimal erythema. Tenderness of both lower extremities also was appreciated. DESIGN LEAD: Conscious, alert, oriented x3 with appropriate mental status. Cranial nerves 2 through 12 are grossly intact. DIAGNOSTIC DATA: CBC showed WBC count of 7.9, hemoglobin of 10.5, MCV of 97.8, platelets of 148. CMP on presentation showed sodium 129, potassium 4.6, chloride 99, CO2 of 18, BUN 58, creatinine 3.74, glucose 122, calcium 9.3, total bilirubin 5.1, AST 113, ALT 46, alkaline phosphatase 135, total protein 6.3, albumin 2.4. BNP is 170.2. Review of medical records showed that the patient had a creatinine of 0.89 on February 03, 2016. There is no other recent creatinine available in the system. Chest x-ray on presentation showed bilateral pleural effusion as well as adjacent atelectasis versus infiltrates. ASSESSMENT: 1. Renal failure: Most likely acute. Chronic kidney disease, however, cannot be ruled out. Review of medical record revealed creatinine of 0.8 in 2016. There is no more recent creatinine level available. The acute component most likely is either due to dehydration and/or hepatorenal syndrome, given decompensated liver cirrhosis. 2. possible hepatorenal syndrome. 3. Presumed volume contraction. 4. Anasarca. 5. Liver cirrhosis with decompensation. 6. Hyponatremia. 7. Anemia. PLAN: 1. We will start the patient on albumin every 6 hours and recheck renal function test in the morning. 2. We will also get urinalysis with urine protein and urine electrolytes. 3. Avoid nephrotoxic agents. 4. Further treatment to follow depending on hospital course. Anticipate treatment with octreotide and midodrine if no significant drop in creatinine level. 5. We will also get medical record from the patient safety officer's office to ascertain baseline creatinine. Many thanks for involving us in the care of this patient. We will follow along with you. Job ID: [id number]
[2020-04-06 11:13] LABS: INR-International Normal Ratio 2.2; PTT 42.6 sec (22.9-36.1); Prothrombin Time 24.9 sec (12.0-14.7)
--- NOTE | 2020-04-06 11:39 | CON ---
DATE OF CONSULTATION: 04/06/2020 REASON FOR CONSULTATION: Cirrhosis, abdominal swelling, and edema. HISTORY OF PRESENT ILLNESS: Mr. Arguello is a 80-year-old man with alcoholic cirrhosis and multifocal hepatocellular carcinoma, who had been undergoing transarterial chemoembolization therapy at [facility] in [place]. The patient was brought to the ER yesterday by his for worsening of peripheral edema and abdominal swelling. He reports having chronic nausea that actually has been improving in the recent weeks. There has been no actual vomiting. There is no indication of any GI bleeding such as melena, hematochezia, or hematemesis. The patient reports having increasing abdominal swelling over the last 2 weeks and lower leg swelling that has been persistent for the last month. He was seen in the outpatient clinic approximately two weeks ago with the left lower leg also the yao area. At that time, he was started on oral Bactrim. A month ago, his baseline creatinine was 1.28. He was on alternating dose of Aldactone between 50 to 100 mg and furosemide between 20 to 40 mg daily. He has noted increasing leg swelling. On admission, his creatinine was elevated at 3.74. He denies any mental confusion or somnolence. There is no localizing abdominal pain or discomfort other than generalized discomfort. He does not have any shortness of breath or any worsening of shortness of breath with lying down. The patient has no fever or chills. There has been no vomiting despite having nausea. Since admission, the patient has had gentle rehydration with initial IV fluid bolus and currently with normal saline 125 mL an hour. His creatinine has improved down to 3 this morning. He also has been receiving scheduled albumin infusion. PAST MEDICAL HISTORY: 1. Alcoholic liver disease with cirrhosis. 2. Multifocal hepatocellular carcinoma, status post TACE therapy in [place]. 3. Marquez esophagus. 4. GE reflux disease. 5. History of rib fracture and pneumothorax requiring chest tube placement. ALLERGIES: NONE. MEDICATIONS: At home include: 1. Dutasteride 0.5 mg daily. 2. Iron sulfate 325 mg daily. 3. Furosemide 20 mg q. Sunday, Sunday, and Sunday and 40 mg Sunday, , Sunday and Sunday. 4. Aldactone 50 mg Sunday, Sunday, and Sunday and 100 mg Sunday, , Sunday and Sunday. 5. Pantoprazole 40 mg b.i.d. 6. Ondansetron 4 mg q.6 hours as needed. SOCIAL HISTORY: The patient is , lives with his . Former heavy drinker, stopped for the last three years. Former smoker. FAMILY HISTORY: Negative for any known GI problem, liver disease, or GI malignancy. REVIEW OF SYSTEMS: Ten-point review of systems did not show any other pertinent positives or negatives, no other reflux symptoms. Other than listed above. PHYSICAL EXAMINATION: VITAL SIGNS: Temperature is 97.5, blood pressure 91/54, pulse of 76. GENERAL: He is alert, conversant, cachectic, elderly man without any severe distress. HEENT: Oropharynx is clear and moist. Sclerae are mildly icteric. NECK: Supple. CV: Normal S1, S2. Regular rate and rhythm. CHEST: Shows breath sounds. ABDOMEN: Protuberant, mildly tense. No focal tenderness. No guarding or rebound. He has active bowel sounds. EXTREMITIES: Showed 1+ pretibial and pedal edema. There is a dry crusted ulcer over the left lower yao with mildly surrounding erythema that is tender to palpation. There is no discharge with crusted over the ulcer. LABORATORY DATA: Sodium 132; potassium 4.8; chloride 102; CO2 of 19; creatinine down to 3.01, 3.74 yesterday. Bilirubin 5.1, AST 113, ALT 46, alkaline phosphatase 135, albumin 2.4, TIBC is 93, iron saturation 133, ferritin 3700. WBCs 7.9, hemoglobin 10.5, and platelet count of 148. COVID-19 PCR is negative. Chest x-ray showed evidence of bilateral pleural effusion, right greater than left. ASSESSMENT: 1. Alcoholic liver disease with evidence of decompensation. Evidence of ascites on exam with reporting increasing swelling for the last 2 weeks and now persistent peripheral edema. His edema actually is not very severe on today's exam. The patient is scheduled for paracentesis today. 2. Multifocal hepatocellular carcinoma, status post transarterial chemoembolization therapy at [facility]. 3. Left lower yao ulcer, although there was a concern for underlying cellulitis or osteomyelitis, however, there is no marked erythema to suggest any significant cellulitis at the present time. 4. Acute renal failure, could be from Bactrim that was started two weeks ago from hepatorenal syndrome and decreased renal perfusion. 5. Acute on chronic anemia, no signs of GI blood loss. Marked elevation of ferritin is likely an acute phase reactant. RECOMMENDATIONS: 1. I agree with paracentesis today, I will send for cell count and peritoneal fluid culture. 2. Continue with albumin 25 g q.6 hours, we will add midodrine 5 mg p.o. t.i.d. to enhance renal perfusion. This will also help with his hypotension that is very typical for people with cirrhosis. 3. Continue ceftriaxone until peritoneal fluid study return. 4. I will closely monitor his left lower yao area for any evidence of cellulitis. 5. I will follow. Job ID: [id number] [facility]
[2020-04-06] MEDS ORDERED: Lidocaine 1% PF 5 ML VIAL ONE (11:48)
[2020-04-06] MEDS ORDERED: Sodium Bicarbonate 2.5 MEQ/5 ML VIAL ONE (11:48)
--- NOTE | 2020-04-06 13:12 | ULT ---
Paracentesis sonographic guided HISTORY: Symptomatic ascites. Evaluate for infection. FINDINGS: After explaining the procedure and answering all questions, sonographic survey showed a lar ge moderate amount of free fluid throughout the abdomen. Sterile technique, buffered local anesthesia, sonographic guidance, and a right lateral approach were used to carefully advance the tip of a 19-gauge Yueh needle and catheter into the free fluid. Catheter was left to drain a total volume of 2.2 L dark yellow liquid. Catheter was removed with smal l amount of fluid remaining. Patient tolerated the procedure well and was returned in improved condition. Fluid was sent to laboratory for analysis. IMPRESSION : Technically successful sonographic guided paracentesis. 2.2 L.
[2020-04-06 13:23] LABS: RBC Count-Automated (BF) 285 /cu.mm; WBC/Nucleated-Auto (BF) 165 uL
[2020-04-06 13:38] LABS: Body Fluid Source Peritoneal Fluid
[2020-04-06 13:39] LABS: BF Color Yellow; Clarity Hazy (Clear); Tube # EDTA
[2020-04-06 14:01] LABS: BF Segmented Neutrophils 28 %; Cell Count Non Hematic 58 %; Lymphocytes 14 %
[2020-04-06] MEDS: Midodrine HCl 5 MG TAB PO SCH ×2 (15:39→19:46)
--- NOTE | 2020-04-06 18:28 | PDOC.HOSPP ---
- Subjective Encounter Date: 04/06/20 Encounter Time: 10:00 Subjective: Patient seen for follow-up regarding acute renal failure. Patient denies chest pain. He reports generalized weakness. - Objective Vital Signs & Weight: Vital Signs (12 hours) Temp Pulse Resp BP Pulse Ox 04/06/20 16:49 97.6 F 99 20 103/66 94 L 04/06/20 12:47 97.6 F 81 20 101/56 L 97 04/06/20 08:01 97.5 F L 76 20 91/54 L 95 04/06/20 07:53 95 Weight Admit Weight 132 lb 3.2 oz Weight 132 lb 3.2 oz I&O: 04/05/20 04/06/20 04/07/20 06:59 06:59 06:59 Intake Total 700 Output Total 2200 Balance -1500 Result Diagrams: 04/06/20 05:38 04/06/20 05:37 Additional Labs: I reviewed patient's labs and MAR Hospitalist ROS - Review of Systems Constitutional: reports: weakness Cardiovascular: denies: chest pain, palpitations, orthopnea, paroxysmal noc. dyspnea, edema, light headedness Gastrointestinal: denies: nausea, vomiting, abdominal pain, diarrhea, constipation, melena, hematochezia - Medication Medications: Active Medications Generic Name Dose Route Start Last Admin Trade Name Cedrickq PRN Reason Stop Dose Admin Albumin Human 25 gm 04/05/20 23:59 04/06/20 17:54 Albumin 25% 25 Gm/100 Ml Bot IVPB 04/06/20 23:59 25 gm Q6HR LINSEY Administration Heparin Sodium (Porcine) 5,000 units 04/06/20 09:00 04/06/20 15:41 Heparin 5,000 Units/Ml Vial SC Not Given TID LINSEY Midodrine 5 mg 04/06/20 15:00 04/06/20 15:39 Midodrine Hcl 5 Mg Tab PO 5 mg TID LINSEY Administration - Exam General Appearance: awake alert Eye: scleral icterus ENT: normocephalic atraumatic Neck: supple Heart: RRR Respiratory: CTAB Gastrointestinal: soft, non-tender, normal bowel sounds, no guarding, no rigidity, distended Skin: no rashes Psychiatric: normal affect, oriented to person Hosp A/P - Plan Assessment/plan: ALDO Likely secondary to hepatorenal syndrome. Patient received albumin Nephrology consulted Presumed SBP Continue ceftriaxone, follow ascitic fluid results. Decompensated liver disease GI service consulted Hypotension Improved
[2020-04-06] MEDS: traMADol HCl 50 MG TAB PO PRN (19:45)
[2020-04-06] MEDS: cefTRIAXone\\ROCEPHIN 1 GM in Sodium Chloride 0.9% 100 ML IVPB SCH (19:46)
[2020-04-07] MEDS: Midodrine HCl 5 MG TAB PO SCH ×3 (07:44→20:44)
[2020-04-07 09:00] LABS: Hemoglobin 8.4 g/dL (14.0-18.0); Mean Corpuscular HGB CONC 32.3 g/dL (32.0-36.0); Mean Corpuscular Volume 99.3 fL (78.0-98.0); Mean Platelet Volume 8.3 fL (7.4-10.4); Platelet Count 55 thou/uL (130-400); RBC Distribution Width 15.7 % (11.5-14.5); Red Blood Cell (RBC) Count 2.63 mill/uL (4.70-6.10); White Blood Cell (WBC) Count 2.4 thou/uL (4.8-10.8)
[2020-04-07 09:10] LABS: ALT (SGPT) 26 U/L (8-55); AST (SGOT) 61 U/L (5-34); Albumin 3.3 g/dL (3.4-4.8); Alkaline Phosphatase 99 U/L (40-110); Anion Gap 14 mmol/L (10-20); BUN (Urea Nitrogen) 43 mg/dL (8.4-25.7); Bilirubin, Total 2.8 mg/dL (0.2-1.2); Calc. Creatinine Clearance 27 mL/min (70-130); Calcium 9.4 mg/dL (7.8-10.44); Carbon Dioxide 21 mmol/L (23-31); Chloride 102 mmol/L (98-107); Globulin 2.4 g/dL (2.4-3.5); Glucose 85 mg/dL (83-110); Potassium 4.4 mmol/L (3.5-5.1); Protein, Total 5.7 g/dL (5.8-8.1); Sodium 133 mmol/L (136-145)
--- NOTE | 2020-04-07 10:57 | PDOC.NEPPN ---
- Subjective Encounter Date: 04/07/20 Subjective: Seen in follow up for ALDO in the context of decompensated liver cirrhosis. Feeling better. Had Paracentesis yesterday. leg swelling is better. Remained afebrile. - Objective Vital Signs & Weight: Vital Signs (12 hours) Temp Pulse Resp BP BP Pulse Ox 04/07/20 07:50 97.7 F 85 20 93/53 L 93 L 04/07/20 07:35 93 L 04/07/20 05:58 97.6 F 85 16 97/48 L 94 L 04/07/20 01:14 97.7 F 90 16 97/57 L 94 L Weight Admit Weight 132 lb 3.2 oz Weight 132 lb 3.2 oz I&O: 04/06/20 04/07/20 04/08/20 06:59 06:59 06:59 Intake Total 1300 Output Total 2850 Balance -1550 Result Diagrams: 04/07/20 08:30 04/07/20 08:30 Nephrology ROS - Medication Medications: Active Medications Generic Name Dose Route Start Last Admin Trade Name Freq PRN Reason Stop Dose Admin Ceftriaxone Sodium 1 gm/ 100 mls @ 200 mls/hr 04/06/20 20:00 04/06/20 19:46 Sodium Chloride IVPB 100 mls 2000 LINSEY Administration Midodrine 5 mg 04/06/20 15:00 04/07/20 07:44 Midodrine Hcl 5 Mg Tab PO 5 mg TID LINSEY Administration Tramadol HCl 50 mg 04/06/20 18:46 04/06/20 19:45 Tramadol Hcl 50 Mg Tab PO 50 mg Q6H PRN Administration Pain - Exam General Appearance: awake alert General - other findings: chronically ill looking. ENT: normocephalic atraumatic, moist mucosa Neck: supple, symmetric, no JVD Respiratory: no wheezes, no rales, no ronchi, normal chest expansion Cardiovascular: RRR Gastrointestinal: soft, normal bowel sounds Extremities - other findings: mild bilateral leg edema Neurological: CN's grossly intact, no focal deficits PSYCH: A&O x 3 Nephrology Results - Labs Result Diagrams: 04/07/20 08:30 04/07/20 08:30 Lab results: WBC 2.4 thou/uL (4.8-10.8) L 04/07/20 08:30 Hgb 8.4 g/dL (14.0-18.0) L 04/07/20 08:30 Hct 26.1 % (42.0-52.0) L 04/07/20 08:30 MCV 99.3 fL (78.0-98.0) H 04/07/20 08:30 Plt Count 55 thou/uL (130-400) L 04/07/20 08:30 Neutrophils % 78.9 % (42.0-75.0) H 04/05/20 16:20 Band Neuts % (Manual) 1 % (5-11) L 04/06/20 05:38 Sodium 133 mmol/L (136-145) L 04/07/20 08:30 Potassium 4.4 mmol/L (3.5-5.1) 04/07/20 08:30 Chloride 102 mmol/L (98-107) 04/07/20 08:30 Carbon Dioxide 21 mmol/L (23-31) L 04/07/20 08:30 BUN 43 mg/dL (8.4-25.7) H 04/07/20 08:30 Creatinine 1.91 mg/dL (0.7-1.3) H 04/07/20 08:30 Glucose 85 mg/dL (83-110) 04/07/20 08:30 Lactic Acid 1.5 mmol/L (0.5-2.2) 04/06/20 05:37 Calcium 9.4 mg/dL (7.8-10.44) 04/07/20 08:30 Total Bilirubin 2.8 mg/dL (0.2-1.2) H 04/07/20 08:30 AST 61 U/L (5-34) H 04/07/20 08:30 ALT 26 U/L (8-55) 04/07/20 08:30 Alkaline Phosphatase 99 U/L (40-110) 04/07/20 08:30 B-Natriuretic Peptide 170.2 pg/mL (0-100) H 04/05/20 16:20 Serum Total Protein 5.7 g/dL (5.8-8.1) L 04/07/20 08:30 Albumin 3.3 g/dL (3.4-4.8) L 04/07/20 08:30 Urine Ketones Negative mg/dL (Negative) 04/05/20 19:30 Urine Blood Negative (Negative) 04/05/20 19:30 Urine Nitrite Negative (Negative) 04/05/20 19:30 Ur Leukocyte Esterase Negative Samaria/uL (Negative) 04/05/20 19:30 Sodium 133 mmol/L (136-145) L 04/07/20 08:30 Potassium 4.4 mmol/L (3.5-5.1) 04/07/20 08:30 Chloride 102 mmol/L (98-107) 04/07/20 08:30 Carbon Dioxide 21 mmol/L (23-31) L 04/07/20 08:30 Anion Gap 14 mmol/L (10-20) 04/07/20 08:30 BUN 43 mg/dL (8.4-25.7) H 04/07/20 08:30 Creatinine 1.91 mg/dL (0.7-1.3) H 04/07/20 08:30 Glucose 85 mg/dL (83-110) 04/07/20 08:30 Calcium 9.4 mg/dL (7.8-10.44) 04/07/20 08:30 Albumin 3.3 g/dL (3.4-4.8) L 04/07/20 08:30 Nephrology AP PN - Plan ALDO: Most likely due to volume depletion and effect of bactrim. Creat is trending down with albumin infusion. Possible hepatorenal syndrome: unlikely now with improvement with albumin alone. CKD: Baseline creat is unknown. Reportedly had creat of 1.28 few weeks ago. Hypoalbuminemia Hyponatremia. Due to volume contraction with appropriate ADH. sodium level is trending up with albumin. Anasarca. Improving Decompensated liver cirrhosis. Plan Continue albumin for another 24 hours. No need for octreotide Monitor renal function and electrolytes Avoid lasix for now. Avoid nephrotoxic agents and diuretics.
[2020-04-07 11:20] LABS: Band 4 % (5-11); Burr Cells SLIGHT = 2-5 cells (100X) (0-1/hpf); Eosinophils 4 % (0-10); Hypochromia SLIGHT = 6-15 cells (100X) (0-5/hpf); Lymphocytes 3 % (21-51); MDiff Complete? YES; Monocytes 19 % (0-10); Neutrophil 71 % (42-75); Ovalocytes SLIGHT = 2-5 cells (100X) (0-1/hpf); Platelet Morphology Comment Appears Decreased; Polychromasia SLIGHT = 2-3 cells (100X) (0-2/hpf)
--- NOTE | 2020-04-07 11:48 | PRG ---
DATE OF SERVICE: 04/07/2020 SUBJECTIVE: The patient started complaining this morning with back pain and ankle pain. He has no nausea, vomiting. His abdomen feels much better after paracentesis yesterday. He is not short of breath. PHYSICAL EXAMINATION: VITAL SIGNS: Temperature is 97.7, blood pressure 93/53, pulse of 85. GENERAL: He is alert, lucid, oriented. HEENT: Head exam shows anicteric sclerae. Oropharynx is clear and moist. CV: Shows normal S1, S2. Regular rate and rhythm. CHEST: Shows breath sound. ABDOMEN: Not as distended, soft. No palpable mass or organomegaly. EXTREMITIES: There is a dressing covered at the ulcer over the left lower yao. There is some surrounding skin erythema, but no tenderness. LABORATORY DATA: Electrolytes within normal range. Creatinine 1.91 (down from 3.01), bilirubin 2.8, AST 61, ALT is 26. WBCs 2.4, hemoglobin 8.4 (8.5 yesterday), platelet count of 55. Peritoneal fluid count showed wbc 165 and rbc 285, ascitic fluid culture negative at 24 hours, blood culture negative at 24 hours. ASSESSMENT: 1. Acute renal failure, either from intravascular volume contraction versus hepatorenal syndrome. Creatinine is trending downward. Currently on scheduled albumin and midodrine. 2. 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 3. Multifocal hepatocellular carcinoma, status post transarterial chemoembolization therapy in [place]. 4. Chronic anemia. 5. Ascites, no objective evidence for SBP at the present time with cell count and culture, negative at 24 hours. 6. Left lower yao ulcer, watching out for cellulitis. RECOMMENDATIONS: 1. Continue with albumin 25 g q.6 and midodrine 5 mg t.i.d. 2. Continue ceftriaxone, can discontinue tomorrow if peritoneal culture is negative at 48 hours. 3. Continue low-sodium diet and liquid nutrition supplement. 4. We will follow. Dr. Weber will cover GI service, the next 4 days. Job ID: [id number]
[2020-04-07] MEDS: Albumin 25% 25 GM/100 ML BOT IVPB SCH ×4 (12:03→23:14)
[2020-04-07] MEDS: traMADol HCl 50 MG TAB PO PRN ×2 (14:38→20:42)
--- NOTE | 2020-04-07 16:25 | PDOC.HOSPP ---
- Subjective Encounter Date: 04/07/20 Encounter Time: 10:00 Subjective: Patient seen for follow-up regarding COVID-19 pneumonia. Reports cough and sputum. Reports fever. - Objective Vital Signs & Weight: Vital Signs (12 hours) Temp Pulse Resp BP BP Pulse Ox 04/07/20 07:50 97.7 F 85 20 93/53 L 93 L 04/07/20 07:35 93 L 04/07/20 05:58 97.6 F 85 16 97/48 L 94 L Weight Admit Weight 132 lb 3.2 oz Weight 132 lb 3.2 oz I&O: 04/06/20 04/07/20 04/08/20 06:59 06:59 06:59 Intake Total 1300 Output Total 2850 Balance -1550 Result Diagrams: 04/07/20 08:30 04/07/20 08:30 Hospitalist ROS - Review of Systems Constitutional: reports: fever. denies: chills, sweats, weakness, malaise Respiratory: reports: cough, sputum. denies: dry, shortness of breath, hemoptysis, SOB with excertion, pleuritic pain, wheezing Skin: denies: rash, lesions, simone, bruising - Medication Medications: Active Medications Generic Name Dose Route Start Last Admin Trade Name Freq PRN Reason Stop Dose Admin Albumin Human 25 gm 04/07/20 11:00 04/07/20 12:03 Albumin 25% 25 Gm/100 Ml Bot IVPB 04/08/20 05:01 25 gm Q6H LINSEY Administration Ceftriaxone Sodium 1 gm/ 100 mls @ 200 mls/hr 04/06/20 20:00 04/06/20 19:46 Sodium Chloride IVPB 100 mls 2000 LINSEY Administration Midodrine 5 mg 04/06/20 15:00 04/07/20 14:38 Midodrine Hcl 5 Mg Tab PO 5 mg TID LINSEY Administration Tramadol HCl 50 mg 04/06/20 18:46 04/07/20 14:38 Tramadol Hcl 50 Mg Tab PO 50 mg Q6H PRN Administration Pain - Exam General Appearance: awake alert Eye: anicteric sclera ENT: moist mucosa Neck: supple Heart: RRR Respiratory: rales, rhonchi Gastrointestinal: soft, non-tender Skin: no rashes Psychiatric: normal affect, normal behavior Hosp A/P - Plan Assessment/plan: ALDO Likely secondary to combination of volume depletion and hepatorenal syndrome. Patient received albumin Creatinine improved to 1.91 today. Presumed SBP Continue ceftriaxone, follow ascitic fluid culture. Decompensated liver disease Appreciate GI service input. Hypotension Improved
[2020-04-07] MEDS: cefTRIAXone\\ROCEPHIN 1 GM in Sodium Chloride 0.9% 100 ML IVPB SCH (20:42)
[2020-04-08] MEDS: Albumin 25% 25 GM/100 ML BOT IVPB SCH (05:25)
[2020-04-08 07:00] LABS: ALT (SGPT) 18 U/L (8-55); AST (SGOT) 42 U/L (5-34); Albumin 3.9 g/dL (3.4-4.8); Alkaline Phosphatase 63 U/L (40-110); BUN (Urea Nitrogen) 35 mg/dL (8.4-25.7); Bilirubin, Total 3.3 mg/dL (0.2-1.2); Calc. Creatinine Clearance 37 mL/min (70-130); Calcium 9.6 mg/dL (7.8-10.44); Chloride 106 mmol/L (98-107); Globulin 1.6 g/dL (2.4-3.5); Glucose 70 mg/dL (83-110); Magnesium 1.6 mg/dL (1.6-2.6); Potassium 4.1 mmol/L (3.5-5.1); Protein, Total 5.5 g/dL (5.8-8.1); Sodium 137 mmol/L (136-145)
[2020-04-08 07:07] LABS: Carbon Dioxide 20 mmol/L (23-31)
[2020-04-08 07:35] LABS: Phosphorus 1.8 mg/dL (2.3-4.7)
[2020-04-08 07:39] LABS: Hemoglobin 7.5 g/dL (14.0-18.0); Mean Corpuscular HGB CONC 31.4 g/dL (32.0-36.0); Mean Corpuscular Hemoglobin 31.6 pg (27.0-31.0); RBC Distribution Width 15.9 % (11.5-14.5); Red Blood Cell (RBC) Count 2.37 mill/uL (4.70-6.10); White Blood Cell (WBC) Count 2.3 thou/uL (4.8-10.8)
[2020-04-08 08:27] LABS: Anion Gap 15 mmol/L (10-20)
[2020-04-08] MEDS: Midodrine HCl 5 MG TAB PO SCH ×3 (08:33→20:01)
[2020-04-08 08:37] LABS: Anisocytosis SLIGHT = 6-15 cells (100X) (0-5/hpf); Band 6 % (5-11); Eosinophils 1 % (0-10); Lymphocytes 10 % (21-51); MDiff Complete? YES; Mean Platelet Volume 8.7 fL (7.4-10.4); Monocytes 11 % (0-10); Neutrophil 71 % (42-75); Platelet Count 49 thou/uL (130-400); Platelet Morphology Comment Appears Decreased; Reactive Lymphocytes 1 % (0-10)
[2020-04-08] MEDS ORDERED: PHOS-NAK 1 PKT PACK PO SCH (09:30)
[2020-04-08] MEDS ORDERED: Sodium Phosphate 30 MMOL in Sodium Chloride 0.9% 250 ML 250 ML IVPB SCH (09:45)
--- NOTE | 2020-04-08 09:58 | PDOC.NEPPN ---
- Subjective Encounter Date: 04/08/20 Subjective: Seen and examined in follow up for ALDO and edema. swelling is better. complains of generalized weakness. - Objective Vital Signs & Weight: Vital Signs (12 hours) Temp Pulse Resp BP Pulse Ox 04/08/20 07:30 97.9 F 89 18 92/51 L 92 L Weight Admit Weight 132 lb 3.2 oz Weight 132 lb 3.2 oz I&O: 04/07/20 04/08/20 04/09/20 06:59 06:59 06:59 Intake Total 1300 1050 Output Total 2850 Balance -1550 1050 Result Diagrams: 04/08/20 06:17 04/08/20 06:17 Nephrology ROS - Medication Medications: Active Medications Generic Name Dose Route Start Last Admin Trade Name Freq PRN Reason Stop Dose Admin Ceftriaxone Sodium 1 gm/ 100 mls @ 200 mls/hr 04/06/20 20:00 04/07/20 20:42 Sodium Chloride IVPB 100 mls 2000 LINSEY Administration Midodrine 5 mg 04/06/20 15:00 04/08/20 08:33 Midodrine Hcl 5 Mg Tab PO 5 mg TID LINSEY Administration Tramadol HCl 50 mg 04/06/20 18:46 04/07/20 20:42 Tramadol Hcl 50 Mg Tab PO 50 mg Q6H PRN Administration Pain - Exam General Appearance: awake alert ENT: normocephalic atraumatic, moist mucosa Neck: supple, symmetric, no JVD Respiratory: CTAB, no wheezes, no rales, no ronchi, normal chest expansion, no tachypnea Cardiovascular: RRR Gastrointestinal: soft, non-distended, normal bowel sounds Extremities: no cyanosis, 1+ LE edema Neurological: CN's grossly intact, no focal deficits Musculoskeletal: generalized weakness PSYCH: A&O x 3 Nephrology Results - Labs Result Diagrams: 04/08/20 06:17 04/08/20 06:17 Lab results: WBC 2.3 thou/uL (4.8-10.8) L 04/08/20 06:17 Hgb 7.5 g/dL (14.0-18.0) L 04/08/20 06:17 Hct 23.8 % (42.0-52.0) L 04/08/20 06:17 MCV 101.0 fL (78.0-98.0) H 12/24/20 06:17 Plt Count 49 thou/uL (130-400) L 04/08/20 06:17 Neutrophils % 78.9 % (42.0-75.0) H 04/05/20 16:20 Band Neuts % (Manual) 6 % (5-11) 04/08/20 06:17 Sodium 137 mmol/L (136-145) 04/08/20 06:17 Potassium 4.1 mmol/L (3.5-5.1) 04/08/20 06:17 Chloride 106 mmol/L (98-107) 04/08/20 06:17 Carbon Dioxide 20 mmol/L (23-31) L 04/08/20 06:17 BUN 35 mg/dL (8.4-25.7) H 04/08/20 06:17 Creatinine 1.41 mg/dL (0.7-1.3) H 04/08/20 06:17 Glucose 70 mg/dL (83-110) L 04/08/20 06:17 Lactic Acid 1.5 mmol/L (0.5-2.2) 04/06/20 05:37 Calcium 9.6 mg/dL (7.8-10.44) 04/08/20 06:17 Total Bilirubin 3.3 mg/dL (0.2-1.2) H 04/08/20 06:17 AST 42 U/L (5-34) H 04/08/20 06:17 ALT 18 U/L (8-55) 04/08/20 06:17 Alkaline Phosphatase 63 U/L (40-110) 04/08/20 06:17 B-Natriuretic Peptide 170.2 pg/mL (0-100) H 04/05/20 16:20 Serum Total Protein 5.5 g/dL (5.8-8.1) L 04/08/20 06:17 Albumin 3.9 g/dL (3.4-4.8) 04/08/20 06:17 Urine Ketones Negative mg/dL (Negative) 04/05/20 19:30 Urine Blood Negative (Negative) 04/05/20 19:30 Urine Nitrite Negative (Negative) 04/05/20 19:30 Ur Leukocyte Esterase Negative Samaria/uL (Negative) 04/05/20 19:30 Sodium 137 mmol/L (136-145) 04/08/20 06:17 Potassium 4.1 mmol/L (3.5-5.1) 04/08/20 06:17 Chloride 106 mmol/L (98-107) 04/08/20 06:17 Carbon Dioxide 20 mmol/L (23-31) L 04/08/20 06:17 Anion Gap 15 mmol/L (10-20) 04/08/20 06:17 BUN 35 mg/dL (8.4-25.7) H 04/08/20 06:17 Creatinine 1.41 mg/dL (0.7-1.3) H 04/08/20 06:17 Glucose 70 mg/dL (83-110) L 04/08/20 06:17 Calcium 9.6 mg/dL (7.8-10.44) 04/08/20 06:17 Phosphorus 1.8 mg/dL (2.3-4.7) L 04/08/20 06:17 Magnesium 1.6 mg/dL (1.6-2.6) 04/08/20 06:17 Albumin 3.9 g/dL (3.4-4.8) 04/08/20 06:17 Nephrology AP PN - Plan ALDO: Most likely due to volume depletion and effect of bactrim. Creat is trending down with albumin infusion. CKD: Baseline creat is unknown. Reportedly had creat of 1.28 few weeks ago. Hypoalbuminemia Hyponatremia. Due to volume contraction with appropriate ADH. sodium level is trending up with albumin. Anasarca. Improving Decompensated liver cirrhosis. Hypophosphatemia Anemia: acute drop most likely related to correction of hemoconcentration with albumin therapy. Though patient is at increased risk of GI bleeding Metabolic acidosis Plan Replete serum phosphate Start alkali therapy Restart spironolactone Monitor renal function and electrolytes Avoid nephrotoxic agents and lasix.
[2020-04-08] MEDS: Sodium Bicarbonate Tab 325 MG TAB PO SCH ×2 (10:04→20:02)
[2020-04-08] MEDS: Spironolactone 25 MG TAB PO SCH (10:06)
--- NOTE | 2020-04-08 19:34 | PDOC.HOSPP ---
- Subjective Encounter Date: 04/08/20 Encounter Time: 11:30 Subjective: Patient seen for follow-up regarding acute kidney injury. He reports feeling better. - Objective Vital Signs & Weight: Vital Signs (12 hours) Temp Pulse Resp BP Pulse Ox 04/08/20 17:37 98.4 F 84 17 95/64 96 Weight Admit Weight 132 lb 3.2 oz Weight 132 lb 3.2 oz I&O: 04/07/20 04/08/20 04/09/20 06:59 06:59 06:59 Intake Total 1300 1050 Output Total 2850 Balance -1550 1050 Result Diagrams: 04/08/20 06:17 04/08/20 06:17 Additional Labs: I reviewed patient's labs and MAR Hospitalist ROS - Review of Systems Cardiovascular: denies: chest pain, palpitations, orthopnea, paroxysmal noc. dyspnea, edema, light headedness Genitourinary: denies: dysuria, frequency, incontinence, hematuria, retention - Medication Medications: Active Medications Generic Name Dose Route Start Last Admin Trade Name Freq PRN Reason Stop Dose Admin Midodrine 5 mg 04/06/20 15:00 04/08/20 14:27 Midodrine Hcl 5 Mg Tab PO 5 mg TID LINSEY Administration Sodium Bicarbonate 650 mg 04/08/20 09:00 04/08/20 10:04 Sodium Bicarbonate Tab 325 Mg Tab PO 650 mg BID LINSEY Administration Spironolactone 50 mg 04/08/20 08:00 04/08/20 10:06 Spironolactone 25 Mg Tab PO 50 mg QAM-WM LINSEY Administration Tramadol HCl 50 mg 04/06/20 18:46 04/07/20 20:42 Tramadol Hcl 50 Mg Tab PO 50 mg Q6H PRN Administration Pain - Exam General Appearance: awake alert Eye: scleral icterus ENT: moist mucosa Neck: supple Heart: RRR Respiratory: CTAB Gastrointestinal: soft, non-tender Skin: no rashes Psychiatric: normal affect, normal behavior Hosp A/P - Plan Assessment/plan: ALDO Likely secondary to combination of volume depletion and hepatorenal syndrome. Patient received albumin Creatinine improved to 1.41 today. Replace phosphorus. Presumed SBP Discontinue antibiotics and follow culture. Decompensated liver disease Gastroenterology service following Hypotension Improved
[2020-04-08] MEDS: traMADol HCl 50 MG TAB PO PRN (20:01)
--- NOTE | 2020-04-09 05:33 | PRG ---
DATE OF SERVICE: 04/08/2020 Mr. Arguello feels better. He is eating. He was told he may go home tomorrow or the next day. His swelling, he feels, is better. MEDICATIONS: 1. Rocephin. 2. Midodrine. 3. Zofran. 4. Sodium bicarbonate. 5. Aldactone 50 daily. 6. Ultram p.r.n. PHYSICAL EXAMINATION: VITAL SIGNS: Temperature is 98.3, blood pressure 98/64, respirations 17. GENERAL: He has muscle wasting. He is resting comfortably. He is actually getting up to try to have a bowel movement. He states he has not been able to have a bowel movement since he has been here. EXTREMITIES: Legs are better. Rash in the leg looks better. LABS: White count 2.4, hemoglobin 7.5, it was 10.5 on admission, although he has been hydrated fairly aggressively. His baseline hemoglobin, January 2020, was 10.6. His baseline BUN and creatinine January 2020 was 1.1 with a BUN of 17. With regard to the drop in hemoglobin, he denies any overt melena, hematochezia, or hematemesis. He is not on ulcer prophylaxis. ASSESSMENT: Renal insufficiency, acute, likely related to a component of hepatorenal. There were no signs of infection with ascitic fluid having low PMN count and cultures being negative. Blood cultures were negative, and urine was negative for white blood cells. I suspect this was a combination of increasing his diuretics for the edema that was in his legs as we increased from 50 of Aldactone and 20 of Lasix to that alternating with 100 of Aldactone and 40 of Lasix every other day in the clinic about 2 weeks prior to admission. Additionally, he was put on Bactrim for possible MRSE cellulitis in the leg, that probably contributed to decreased renal function presently. Creatinine has come down further today from 1.9 yesterday to 1.4 today and BUN from 43 to 35. RECOMMENDATIONS: 1. Start a PPI. 2. Stop antibiotics. 3. We will give him a unit of blood, as his hemoglobin has trickled down. A lot of this may be but he is weak and frail and does have a hepatoma, so we are going to go ahead and do that. Hopefully, maybe he can go home tomorrow. As he is having difficulty with bowel movements, we will start him on lactulose. Job ID: [id number]
[2020-04-09 05:54] LABS: Hemoglobin 8.2 g/dL (14.0-18.0)
[2020-04-09 06:17] LABS: ALT (SGPT) 28 U/L (8-55); AST (SGOT) 51 U/L (5-34); Albumin 3.4 g/dL (3.4-4.8); Alkaline Phosphatase 78 U/L (40-110); Anion Gap 13 mmol/L (10-20); BUN (Urea Nitrogen) 29 mg/dL (8.4-25.7); Bilirubin, Total 4.3 mg/dL (0.2-1.2); Calc. Creatinine Clearance 43 mL/min (70-130); Calcium 9.3 mg/dL (7.8-10.44); Carbon Dioxide 24 mmol/L (23-31); Chloride 106 mmol/L (98-107); Glucose 79 mg/dL (83-110); Potassium 4.5 mmol/L (3.5-5.1); Protein, Total 5.4 g/dL (5.8-8.1); Sodium 138 mmol/L (136-145)
[2020-04-09] MEDS: Sodium Bicarbonate Tab 325 MG TAB PO SCH (07:50)
[2020-04-09] MEDS: Midodrine HCl 5 MG TAB PO SCH (07:51)
[2020-04-09] MEDS: Spironolactone 25 MG TAB PO SCH (07:51)
--- NOTE | 2020-04-09 09:25 | PDOC.NEPPN ---
- Subjective Encounter Date: 04/09/20 Subjective: Feeling better. Had transfusion of 1 PRBC yesterday. No nausea, vomiting or fever. - Objective Vital Signs & Weight: Vital Signs (12 hours) Temp Pulse Pulse Resp BP BP BP 04/09/20 07:37 97.9 F 84 19 111/65 04/09/20 00:57 98.3 F 72 16 110/60 04/09/20 00:56 98.3 F 72 16 110/60 04/08/20 22:00 98.0 F 86 18 104/54 L 04/08/20 21:32 98.1 F 89 18 107/61 Pulse Ox 04/09/20 07:37 94 L 04/09/20 00:57 94 L 04/09/20 00:56 94 L 04/08/20 22:00 96 04/08/20 21:32 95 Weight Admit Weight 132 lb 3.2 oz Weight 132 lb 3.2 oz I&O: 04/08/20 04/09/20 04/10/20 06:59 06:59 06:59 Intake Total 1050 900 Balance 1050 900 Result Diagrams: 04/09/20 05:44 04/09/20 05:44 Nephrology ROS - Medication Medications: Active Medications Generic Name Dose Route Start Last Admin Trade Name Freq PRN Reason Stop Dose Admin Lactulose 20 gm 04/08/20 21:00 04/09/20 07:56 Lactulose 20 Gm/30 Ml Udcup PO 20 gm TID LINSEY Administration Midodrine 5 mg 04/06/20 15:00 04/09/20 07:51 Midodrine Hcl 5 Mg Tab PO 5 mg TID ILNSEY Administration Pantoprazole Sodium 40 mg 04/09/20 09:00 04/09/20 07:51 Pantoprazole 40 Mg Tab PO 40 mg DAILY LINSEY Administration Sodium Bicarbonate 650 mg 04/08/20 09:00 04/09/20 07:50 Sodium Bicarbonate Tab 325 Mg Tab PO 650 mg BID LINSEY Administration Spironolactone 50 mg 04/08/20 08:00 04/09/20 07:51 Spironolactone 25 Mg Tab PO 50 mg QAM-WM LINSEY Administration Tramadol HCl 50 mg 04/06/20 18:46 04/08/20 20:01 Tramadol Hcl 50 Mg Tab PO 50 mg Q6H PRN Administration Pain - Exam General Appearance: awake alert ENT: normocephalic atraumatic, moist mucosa Neck: supple, symmetric, no JVD Respiratory: no wheezes, no rales, no ronchi, normal chest expansion, no tachypnea Cardiovascular: RRR Gastrointestinal: soft, non-tender, normal bowel sounds Extremities: 1+ LE edema Neurological: CN's grossly intact, no focal deficits PSYCH: normal affect, normal behavior, A&O x 3 Nephrology Results - Labs Result Diagrams: 04/09/20 05:44 04/09/20 05:44 Lab results: WBC 2.3 thou/uL (4.8-10.8) L 04/08/20 06:17 Hgb 8.2 g/dL (14.0-18.0) L 04/09/20 05:44 Hct 25.8 % (42.0-52.0) L 04/09/20 05:44 MCV 101.0 fL (78.0-98.0) H 04/08/20 06:17 Plt Count 49 thou/uL (130-400) L 04/08/20 06:17 Neutrophils % 78.9 % (42.0-75.0) H 04/05/20 16:20 Band Neuts % (Manual) 6 % (5-11) 04/08/20 06:17 Sodium 138 mmol/L (136-145) 04/09/20 05:44 Potassium 4.5 mmol/L (3.5-5.1) 04/09/20 05:44 Chloride 106 mmol/L (98-107) 04/09/20 05:44 Carbon Dioxide 24 mmol/L (23-31) 04/09/20 05:44 BUN 29 mg/dL (8.4-25.7) H 04/09/20 05:44 Creatinine 1.21 mg/dL (0.7-1.3) 04/09/20 05:44 Glucose 79 mg/dL (83-110) L 04/09/20 05:44 Lactic Acid 1.5 mmol/L (0.5-2.2) 04/06/20 05:37 Calcium 9.3 mg/dL (7.8-10.44) 04/09/20 05:44 Total Bilirubin 4.3 mg/dL (0.2-1.2) H 04/09/20 05:44 AST 51 U/L (5-34) H 04/09/20 05:44 ALT 28 U/L (8-55) 04/09/20 05:44 Alkaline Phosphatase 78 U/L (40-110) 04/09/20 05:44 B-Natriuretic Peptide 170.2 pg/mL (0-100) H 04/05/20 16:20 Serum Total Protein 5.4 g/dL (5.8-8.1) L 04/09/20 05:44 Albumin 3.4 g/dL (3.4-4.8) 04/09/20 05:44 Urine Ketones Negative mg/dL (Negative) 04/05/20 19:30 Urine Blood Negative (Negative) 04/05/20 19:30 Urine Nitrite Negative (Negative) 04/05/20 19:30 Ur Leukocyte Esterase Negative Samaria/uL (Negative) 04/05/20 19:30 Sodium 138 mmol/L (136-145) 04/09/20 05:44 Potassium 4.5 mmol/L (3.5-5.1) 04/09/20 05:44 Chloride 106 mmol/L (98-107) 04/09/20 05:44 Carbon Dioxide 24 mmol/L (23-31) 04/09/20 05:44 Anion Gap 13 mmol/L (10-20) 04/09/20 05:44 BUN 29 mg/dL (8.4-25.7) H 04/09/20 05:44 Creatinine 1.21 mg/dL (0.7-1.3) 04/09/20 05:44 Glucose 79 mg/dL (83-110) L 04/09/20 05:44 Calcium 9.3 mg/dL (7.8-10.44) 04/09/20 05:44 Phosphorus 1.8 mg/dL (2.3-4.7) L 04/08/20 06:17 Magnesium 1.6 mg/dL (1.6-2.6) 04/08/20 06:17 Albumin 3.4 g/dL (3.4-4.8) 04/09/20 05:44 Nephrology AP PN - Plan ALDO: Most likely due to volume depletion and effect of bactrim. Creat continue to trending down. CKD: Baseline creat is unknown. Reportedly had creat of 1.28 few weeks ago. Closer to baseline if not at baseline currently Hypoalbuminemia Hyponatremia. Due to volume contraction with appropriate ADH. Resolved with albumin. Anasarca. Improved Decompensated liver cirrhosis. Hypophosphatemia: repleted Anemia: acute on chronic due to correction of hemoconcentration with albumin therapy. Though patient is at increased risk of GI bleeding. S/p 1PRBC Metabolic acidosis: Improved with alkali therapy Plan Continue alkali therapy and spironolactone. Continue to hold lasix. Monitor renal function and electrolytes Avoid nephrotoxic agents Can be discharged from Nephrology point of view. Follow up on 04/20/2019 with repeat labs.
--- NOTE | 2020-04-09 13:57 | PRG ---
DATE OF SERVICE: 04/09/2020 SUBJECTIVE: Mr. Arguello is feeling well today. He wants to go home. In fact, he has been told by Nephrology and Internal Medicine that he is going to be able to go home. MEDICATIONS: 1. Lactulose. 2. Midodrine. 3. Zofran. 4. Protonix. 5. Sodium bicarb. 6. Aldactone 50. 7. Tramadol 50. OBJECTIVE: VITAL SIGNS: Temperature is 97, pulse 84, blood pressure is 111/65. ABDOMEN: Soft, nontender. EXTREMITIES: Reveal no edema. His lesion on his leg is well dressed, does not appear to be overtly infected. LABORATORY DATA: Hemoglobin is 8.2, up from 7.5 after 1 unit of blood. Sodium 138, potassium 4.8, BUN and creatinine are 29 and 1.2, bilirubin 4.3, AST 51, ALT 28, albumin 3.4. Ascitic fluid, white count of 165. Serology, COVID not detected. Blood cultures negative. Urine cultures negative. Body fluid, ascitic fluid negative for infection. ASSESSMENT: 1. Admission with acute renal failure, likely related to Bactrim and increased diuretics, resolved. 2. Edema, resolved. 3. Mild encephalopathy. PLAN: 1. I agree the patient can go home today. Dr. Magallanes wants to send him home with just the Aldactone and no Lasix and that is fine. I think it is just 50 mg. Hopefully, if he is stable, he can go back to the 20 of Lasix as well. He should be off the Bactrim as this is what probably bothers kidneys. There are no overt signs of infection. 2. He will need followup with Wound Care. I have talked with the hospitalist and the nurse regarding to get that arranged. 3. He is to follow up my office in 1 to 2 weeks. 4. The patient has expressed his wishes not to have a liver transplant for his liver cancer. I have talked him about options as things progress with seeing Oncology versus Palliative Care. He is definitely interested in quality of life and his main concern home to see his dog for [place]. Job ID: [id number]
--- NOTE | 2020-04-09 15:06 | PDOC.DS.DS ---
Provider - Provider Date of Admission: 04/05/20 19:59 Date of Discharge: 04/09/20 Admitting Provider: Saroj Darby MD Consultations: Gastroentrology (Dr. Bui), Nephrology (Dr. Magallanes) Primary Care Physician: Linus Christopher MD Course - Hospital Course Hospital Course: Discharge diagnosis: 1. Acute kidney injury 2. Metabolic acidosis 3. Acute metabolic encephalopathy 4. Hyponatremia Hospital course: Patient is a pleasant 80-year-old gentleman who was admitted to the hospital on April 05, 2020 for acute metabolic encephalopathy and acute kidney injury in the context of Bactrim and diuretic use. He was seen by nephrology service. Nephrotoxic medications were held. He was also seen by gastroenterology service for known history of cirrhosis of the liver and hepatocellular malignancy. Acute kidney injury resolved. He is being discharged home in a stable condition. Lasix and Bactrim have been discontinued. He is advised to see wound care through primary care provider's office as outpatient. Many thanks for allowing me to participate in your patient's care. Please feel free to contact me with any questions or concerns. Discharge destination: Home Total amount of time spent coordinating this discharge: 31 minutes Resuscitation Status: 04/05/20 21:50 Resuscitation Status Routine Resuscitation Status: DNAR: NO Resuscitation Discussed with: Discussed with patient and . - Labs Lab Results: 04/09/20 05:44 04/09/20 05:44 Abnormal Lab Results - Last 48 hrs 04/08/20 06:17: Carbon Dioxide 20 L, BUN 35 H, Creatinine 1.41 H, Total Bilirubin 3.3 H, AST 42 H, Serum Total Protein 5.5 L, Globulin 1.6 L, Albumin/Globulin Ratio 2.4 H 04/08/20 06:17: WBC 2.3 L, RBC 2.37 L, Hgb 7.5 L, Hct 23.8 L, MCV 101.0 H, MCH 31.6 H, MCHC 31.4 L, RDW 15.9 H, Plt Count 49 L, Lymphocytes % (Manual) 10 L, Monocytes % (Manual) 11 H, Plt Morphology Comment Appears Decreased L 04/08/20 06:17: Phosphorus 1.8 L 04/08/20 19:34: Crossmatch See Detail 04/09/20 05:44: BUN 29 H, Total Bilirubin 4.3 H, AST 51 H, Serum Total Protein 5.4 L, Globulin 2.0 L 04/09/20 05:44: Hgb 8.2 L, Hct 25.8 L Microbiology - Entire Visit 04/06/20 12:25 Peritoneal fluid Body Fluid Culture - Preliminary 04/05/20 19:30 Urine voided Urine Culture - Final 04/05/20 19:20 Venous blood - Right Arm Blood Culture - Preliminary NO GROWTH AT 48 HOURS 04/05/20 19:09 Venous blood - Left Arm Blood Culture - Preliminary NO GROWTH AT 48 HOURS - Physical Exam Vitals: Vital Signs (12 hours) Temp Pulse Resp BP Pulse Ox 04/09/20 08:00 95 04/09/20 07:37 97.9 F 84 19 111/65 94 L Weight Admit Weight 132 lb 3.2 oz Weight 132 lb 3.2 oz Physical Exam: The patient was seen and examined on the day of discharge. Patient denies chest pain or shortness of breath. Vital signs are stable. S1 and S2 are heard. Lungs are clear to auscultation bilaterally. Plan - Discharge Medications Prescriptions: Lactulose 10 GM/15ML Oral Debra [Lactulose] 20 gm PO TID #1000 ml Midodrine HCl [ProAmatine] 5 mg PO TID #90 tab Spironolactone 1 tab PO DAILY #30 tablet Home Medications: Medication Instructions Recorded Confirmed Type Pantoprazole [Protonix] 40 mg PO BID 10/21/15 04/09/20 History Dutasteride [Avodart] 0.5 mg PO DAILY #0 cap 11/13/15 04/06/20 Rx Ferrous Sulfate [Feosol] 325 mg PO DAILY 04/06/20 04/09/20 History traMADol HCl [Ultram] 50 mg PO BID 04/06/20 04/06/20 History Lactulose 10 GM/15ML Oral Debra 20 gm PO TID #1000 ml 04/09/20 Rx [Lactulose] Midodrine HCl [ProAmatine] 5 mg PO TID #90 tab 04/09/20 Rx Ondansetron [Zofran ODT] 4 mg PO Q8HR PRN #0 04/09/20 04/09/20 Rx Spironolactone 1 tab PO DAILY #30 tablet 04/09/20 Rx Allergies: No Known Allergies Allergy (Verified 07/05/19 03:41) - Discharge Instructions Activity:: Activity as Tolerated Nourishment:: Heart Healthy Diet - Follow up Plan Referrals: Dash Magallanes MD [Active] - 04/20/20 11:00 am Linus Christopher MD [Primary Care Provider] - 3 Days Disposition: HOME Quality - Care Measures CORE MEASURES:: N/A
[2020-04-09 17:12] VITALS: BP 105/65; TEMP 97.7
== END 2020-04-09 16:42 | disposition home or self-care (01) | DRG 432 ==
LOC: ERS 15:44 → T4-B 19:59
PROVIDERS: ADMIT Student in an Organized Health Care Education/Training Program; ATTEND Internal Medicine
PROC: 0W9G3ZZ Drainage of Peritoneal Cavity, Percutaneous Approach (ICD-10-PCS; principal; 2020-04-06)
PROC: 30233N1 Transfusion of Nonautologous Red Blood Cells into Peripheral Vein, Percutaneous Approach (ICD-10-PCS; 2020-04-08)
DX: K70.31 Alcoholic cirrhosis of liver with ascites (principal); G93.41 Metabolic encephalopathy; K76.7 Hepatorenal syndrome; N17.9 Acute kidney failure, unspecified; E87.2 Acidosis; E87.1 Hypo-osmolality and hyponatremia; C22.0 Liver cell carcinoma; L97.829 Non-pressure chronic ulcer of other part of left lower leg with unspecified severity; Z20.828 Contact with and (suspected) exposure to other viral communicable diseases; Z66 Do not resuscitate; K21.9 Gastro-esophageal reflux disease without esophagitis; N18.9 Chronic kidney disease, unspecified; D63.1 Anemia in chronic kidney disease; I12.9 Hypertensive chronic kidney disease with stage 1 through stage 4 chronic kidney disease, or unspecified chronic kidney disease; I95.9 Hypotension, unspecified; E88.09 Other disorders of plasma-protein metabolism, not elsewhere classified; E83.39 Other disorders of phosphorus metabolism; T36.8X5A Adverse effect of other systemic antibiotics, initial encounter; T50.2X5A Adverse effect of carbonic-anhydrase inhibitors, benzothiadiazides and other diuretics, initial encounter; Z28.21 Immunization not carried out because of patient refusal; Z87.891 Personal history of nicotine dependence; Z79.899 Other long term (current) drug therapy
CPT/HCPCS: 36415; 36430; 49083; 71045; 80048; 80053; 81003; 82570; 82728; 83540; 83550; 83605; 83735; 83880; 84100; 84156; 84300; 84540; 85014; 85018; 85025; 85060; 85610; 85730; 86850; 86900; 86901; 87040; 87070; 87086; 87205; 87635; 89051; 93005; J0696; J2270; J2405; J3490; P9016; P9047; U0003